=== PATIENT | female | born 1980 | race Caucasian/White ===

== ENCOUNTER 2022-05-09 13:08 | Emergency (ER) | payer MEDICARE, OTHER ==
[~2022-05-09] VITALS: Ht 170 cm; Wt 77.1 kg
[~2022-05-09 13:08] MED LIST: ATEN100T88 PO; CIPR500T78 PO; CLON1TAB36 PO; DICY20TA57 PO; DULO30CA3 PO; HDR2T PO; HYDR1TAB66 PO; HYOS0.1216 PO; METR500T PO; MSL250CCR PO; OMEP20CA6 PO; ONDA-42 SL; ONDA4TAB8 PO; PNT40TEC PO; PRD20T PO; PRD50T PO; PRM25T PO; PROM25SU10 PR; [UNRECOGNIZED DRUG - CODE] PO
[2022-05-09] MEDS ORDERED: NS IV 1000 ML 1,000 ML IV SCH (13:30)
[2022-05-09] MEDS ORDERED: ONDANSETRON 4 MG/2 ML (SDV) Z0FRAN IVP ONE (13:30)
--- NOTE | 2022-05-09 13:37 | ED GI ---
General Chief Complaint: Abdominal/GI Problems Stated Complaint: CROHN'S DISEASE | RECTAL BLEEDING Nursing Triage Note: PT AMB TO RM 7 WITH COMPLAINT OF CROHNS FLARE UP. STATES SHE IS OUT OF HER HUMIRA AND NEEDS TO SEE GASTROENTEROLOGY. History of Present Illness Date Seen by Provider: May 09, 2022 Time Seen by Provider: 13:22 Initial Comments 41-year-old female presents for recurrent diarrhea with brown to dark red blood in the stools at times. She has a history of Crohn's disease and has not been on her Humira for 2 to 3 months due to no follow-up with her bottle inspector in [place]. She is in [place] visiting friends, she otherwise sees Dr. Berry in [place] or [place]. History of partial bowl resection. Timing/Duration: 3-4 Days Severity/Quality: Moderate Location: Generalized Abdomen Radiation: No Radiation Associated Symptoms: No Back Pain, No Chest Pain, No Fever/Chills; Nausea/Vomiting; No Shortness of Air, No Swelling/Mass in Abdomen Allergies and Home Medications Allergies Coded Allergies: meperidine (Verified Allergy, Unknown, 03/26/14) morphine (Verified Allergy, Unknown, 03/26/14) olanzapine (Verified Allergy, Unknown, 03/26/14) prochlorperazine (Verified Allergy, Unknown, 03/26/14) Patient Home Medication List Home Medication List Reviewed: Yes Atenolol (Tenormin 100 Mg) 100 Mg Tablet, 200 MG PO DAILY, (Reported) Entered as Reported by: ONEL HARRIS on 05/27/13 1145 Clonazepam (Klonopin) 1 Mg Tablet, 1 EACH PO BID, (Reported) Entered as Reported by: ONEL HARRIS on 05/27/13 1145 Dicyclomine Hcl (Bentyl) 20 Mg Tablet, 1 EACH PO AC, (Reported) Entered as Reported by: ONEL HARRIS on 05/27/13 1145 Duloxetine Hcl (Cymbalta Capsule) 30 Mg Cap, 90 MG PO DAILY, (Reported) Entered as Reported by: ONEL HARRIS on 05/27/13 1145 Mesalamine (Pentasa) 250 Mg Cap, 1,000 MG PO QID, (Reported) Entered as Reported by: ONEL HARRIS on 05/27/13 1145 Pantoprazole Sodium (Protonix) 40 Mg Tablet., 1 TAB PO DAILY Prescribed by: ANYI WHATLEY on 09/23/13 1349 Promethazine HCl (Promethazine Tablet) 25 Mg Tablet, 25 MG PO Q8H PRN for NAUSEA/VOMITING Prescribed by: JENN ALLISON on 05/09/22 1554 Promethazine Hcl (Phenergan Syrup 30 Ml) 6.25 Mg/5 Ml Syrp, 2 TSP PO Q6H PRN for VOMITING, (Reported) Entered as Reported by: HARDEEP SINCLAIR on 03/25/142158 Review of Systems Review of Systems Constitutional: no symptoms reported, see HPI Gastrointestinal: See HPI, Abdominal Pain; Denies Constipated; Diarrhea, Nausea, Rectal Bleeding All Other Systems Reviewed Negative Unless Noted: Yes Past Odupeys-Zobbmp-Nczuan Hx Patient Social History Tobacco Use?: No Use of E-Cig and/or Vaping dev: No Substance use?: No Alcohol Use?: No Pt feels they are or have been: No Past Medical History Appendectomy, Gallbladder, Tonsillectomy Reproductive Disorders: No Crohns Disease Depression Family Medical History Reviewed Nursing Family Hx No Pertinent Family Hx Physical Exam Vital Signs Vital Signs - First Documented 05/09/22 13:22 Temp 36.8 Pulse 105 Resp 20 B/P (MAP) 126/87 (100) Pulse Ox 97 O2 Delivery Room Air Capillary Refill : Less Than 3 Seconds Height/Weight/BMI Height: 5'7" Weight: 180lbs. oz. 81.602375in; 26.00 BMI Method:Stated General Appearance: WD/WN, no apparent distress Neck: non-tender, full range of motion, supple, normal inspection Respiratory: chest non-tender, lungs clear, normal breath sounds Cardiovascular: normal peripheral pulses, regular rate, rhythm Gastrointestinal: normal bowel sounds, soft, no pulsatile mass; No distended, No rebound; tenderness (generalized) Extremities: normal range of motion, non-tender, normal inspection, no pedal edema, no calf tenderness Neurologic/Psychiatric: no motor/sensory deficits, alert, normal mood/affect, oriented x 3 Skin: normal color, warm/dry Progress/Results/Core Measures Results/Orders Lab Results Laboratory Tests Test 05/09/22 14:00 05/09/22 14:14 Range/Units Urine Color YELLOW Urine Clarity CLEAR Urine pH 5.5 5-9 Urine Specific [place] 1.020 1.016-1.022 Urine Protein NEGATIVE NEGATIVE Urine Glucose (UA) NEGATIVE NEGATIVE Urine Ketones NEGATIVE NEGATIVE Urine Nitrite NEGATIVE NEGATIVE Urine Bilirubin NEGATIVE NEGATIVE Urine Urobilinogen 0.2 < = 1.0 MG/DL Urine Leukocyte Esterase NEGATIVE NEGATIVE Urine RBC (Auto) NEGATIVE NEGATIVE Urine RBC NONE /HPF Urine WBC RARE /HPF Urine Squamous Epithelial Cells 2-5 /HPF Urine Crystals NONE /LPF Urine Bacteria NEGATIVE /HPF Urine Casts NONE /LPF Urine Mucus NEGATIVE /LPF Urine Culture Indicated NO Urine Opiates Screen NEGATIVE NEGATIVE Urine Oxycodone Screen NEGATIVE NEGATIVE Urine Methadone Screen NEGATIVE NEGATIVE Urine Propoxyphene Screen NEGATIVE NEGATIVE Urine Barbiturates Screen NEGATIVE NEGATIVE Ur Tricyclic Antidepressants Screen NEGATIVE NEGATIVE Urine Phencyclidine Screen NEGATIVE NEGATIVE Urine Amphetamines Screen NEGATIVE NEGATIVE Urine Methamphetamines Screen NEGATIVE NEGATIVE Urine Benzodiazepines Screen POSITIVE H NEGATIVE Urine Cocaine Screen NEGATIVE NEGATIVE Urine Cannabinoids Screen NEGATIVE NEGATIVE White Blood Count 8.8 4.3-11.0 10^3/uL Red Blood Count 4.57 3.80-5.11 10^6/uL Hemoglobin 13.6 11.5-16.0 g/dL Hematocrit 40 35-52 % Mean Corpuscular Volume 87 80-99 fL Mean Corpuscular Hemoglobin 30 25-34 pg Mean Corpuscular Hemoglobin Concent 34 32-36 g/dL Red Cell Distribution Width 12.1 10.0-14.5 % Platelet Count 211 130-400 10^3/uL Mean Platelet Volume 9.0 9.0-12.2 fL Immature Granulocyte % (Auto) 1 % Neutrophils (%) (Auto) 78 H 42-75 % Lymphocytes (%) (Auto) 8 L 12-44 % Monocytes (%) (Auto) 11 0-12 % Eosinophils (%) (Auto) 2 0-10 % Basophils (%) (Auto) 1 0-10 % Neutrophils # (Auto) 6.8 1.8-7.8 10^3/uL Lymphocytes # (Auto) 0.7 L 1.0-4.0 10^3/uL Monocytes # (Auto) 1.0 0.0-1.0 10^3/uL Eosinophils # (Auto) 0.2 0.0-0.3 10^3/uL Basophils # (Auto) 0.1 0.0-0.1 10^3/uL Immature Granulocyte # (Auto) 0.0 0.0-0.1 10^3/uL Prothrombin Time 12.7 12.2-14.7 SEC INR Comment 0.9 0.8-1.4 Activated Partial Thromboplast Time 31 24-35 SEC Sodium Level 139 135-145 MMOL/L Potassium Level 3.8 3.6-5.0 MMOL/L Chloride Level 102 98-107 MMOL/L Carbon Dioxide Level 27 21-32 MMOL/L Anion Gap 10 5-14 MMOL/L Blood Urea Nitrogen 15 7-18 MG/DL Creatinine 0.81 0.60-1.30 MG/DL Estimat Glomerular Filtration Rate 93 BUN/Creatinine Ratio 19 Glucose Level 61 L 70-105 MG/DL Calcium Level 9.4 8.5-10.1 MG/DL Corrected Calcium 9.4 8.5-10.1 MG/DL Total Bilirubin 0.2 0.1-1.0 MG/DL Aspartate Amino Transf (AST/SGOT) 22 5-34 U/L Alanine Aminotransferase (ALT/SGPT) 38 0-55 U/L Alkaline Phosphatase 83 40-136 U/L C-Reactive Protein High Sensitivity 0.76 H 0.00-0.50 MG/DL Total Protein 7.1 6.4-8.2 GM/DL Albumin 4.0 3.2-4.5 GM/DL Amylase Level 70 25-125 U/L Lipase 67 8-78 U/L My Orders Orders - JENN ALLISON Amylase (05/09/22 13:30) Cbc With Automated Diff (05/09/22 13:30) Comprehensive Metabolic Panel (05/09/22 13:30) Hs C Reactive Protein (05/09/22 13:30) Drug Screen Stat (Urine) (05/09/22 13:30) Lipase (05/09/22 13:30) Protime With Inr (05/09/22 13:30) Partial Thromboplastin Time (05/09/22 13:30) Ua Culture If Indicated (05/09/22 13:30) Ondansetron Injection (Zofran Injectio (05/09/22 13:30) Ed Iv/Invasive Line Start (05/09/22 13:30) Ns Iv 1000 Ml (Sodium Chloride 0.9%) (05/09/22 13:30) Promethazine Injection (Phenergan Injec (12/29/22 14:40) Tramadol Tablet (Ultram Tablet) (05/09/22 15:23) Ketorolac Injection (Toradol Injection) (05/09/22 15:34) Medications Given in ED Current Medications Medications Dose Ordered Sig/Kenna Route Start Time Stop Time Status Last Admin Dose Admin Ondansetron HCl 4 mg ONCE ONCE IVP 05/09/22 13:30 05/09/22 13:32 DC 05/09/22 14:21 4 MG Vital Signs/I&O 05/09/22 13:22 Temp 36.8 Pulse 105 Resp 20 B/P (MAP) 126/87 (100) Pulse Ox 97 O2 Delivery Room Air Blood Pressure Mean: 100 Progress Progress Note : Time: : Progress Note patient assessed, will check labs, IV NS 1 L, Zofran 4 mg IV for nausea. 1400 unable to get IV access. 1430 24 G IV to wrist, will give fluids and medications now. 1450 patient reports no improvement and in nausea and more pain. Will give Phenergan 25 mg IV. 1500 patient continues to push call light every 5 min and demand pain medication, explained that the best and most appropriate treatment is to schedule follow up with her GI doctor in [place] for her Humira injection. 1515 will give Tramadol 50 mg orally for pain. Patient had no episodes of diarrhea, vomiting or rectal bleeding since presenting. 1525 patient refused Tramadol, reports nausea too bad to take anything orally. Will try Toradol 60 mg IM. Patient continues to be demanding, explained labs and VS are stable. This is a chronic problem, we are trying to treat her acute symptoms but getting her monthly injections is the best treatment for her. 1600 patient reports improvement in pain and nausea, discharge instructions and return precautions reviewed. Departure Impression Primary Impression: Crohn's disease Qualified Codes: K50.919 - Crohn's disease, unspecified, with unspecified complications Disposition: HOME, SELF-CARE Condition: Stable Departure-Patient Inst. Decision time for Depature: 15:00 Referrals: [facility],LOCAL PHYSICIAN (PCP) Primary Care Physician Patient Instructions: Crohn's Disease (DC) Add. Discharge Instructions: Clear liquid diet for the next 4 to 6 hours then bland diet as tolerated. Contact your bottle inspector in [place] to set up appointment for your Humira injection. Follow-up with your primary care provider for medication refills. Use the Phenergan as directed for nausea and vomiting. Return to the emergency department for new, urgent healthcare needs. All discharge instructions reviewed with patient and/or family. Voiced understanding. Scripts Promethazine HCl (Promethazine Tablet) 25 Mg Tablet 25 MG PO Q8H PRN for NAUSEA/VOMITING, #10 TAB 0 Refills Prov: JENN ALLISON 05/09/22 JENN ALLISON May 09, 2022 13:37
[2022-05-09 14:03] LABS: BILIRUBIN,URINE NEGATIVE (NEGATIVE); CLARITY,URINE CLEAR; COLOR,URINE YELLOW; GLUCOSE, URINE (UA) NEGATIVE (NEGATIVE); KETONES,URINE NEGATIVE (NEGATIVE); LEUKOCYTE ESTERASE ,URINE NEGATIVE (NEGATIVE); NITRITE,URINE NEGATIVE (NEGATIVE); PH,URINE 5.5 (5-9); PROTEIN,URINE NEGATIVE (NEGATIVE)
[2022-05-09 14:14] LABS: AMPHETAMINE SCREEN, URINE NEGATIVE (NEGATIVE); BACTERIA,URINE NEGATIVE /HPF; BARBITURATE SCREEN URINE NEGATIVE (NEGATIVE); BENZODIAZEPINES SCREEN URINE POSITIVE (NEGATIVE); CANNABINOID SCREEN, URINE NEGATIVE (NEGATIVE); COCAINE SCREEN URINE NEGATIVE (NEGATIVE); METHADONE STAT NEGATIVE (NEGATIVE); OPIATE SCREEN URINE NEGATIVE (NEGATIVE); OXYCODONE STAT NEGATIVE (NEGATIVE); PROPOXYPHENE STAT NEGATIVE (NEGATIVE); TRICYCLIC ANTIDEPRESSANTS SCRE NEGATIVE (NEGATIVE); WBC,URINE RARE /HPF
[2022-05-09 14:28] LABS: BASOPHILS # (AUTO) 0.1 10^3/uL (0.0-0.1); BASOPHILS % (AUTO) 1 % (0-10); EOSINOPHILS # (AUTO) 0.2 10^3/uL (0.0-0.3); EOSINOPHILS % (AUTO) 2 % (0-10); HEMATOCRIT 40 % (35-52); HEMOGLOBIN 13.6 g/dL (11.5-16.0); LYMPHOCYTES # (AUTO) 0.7 10^3/uL (1.0-4.0); LYMPHOCYTES % (AUTO) 8 % (12-44); MEAN CORPUSCULAR HEMOGLOBIN 30 pg (25-34); MEAN CORPUSCULAR HGB CONC 34 g/dL (32-36); MEAN CORPUSCULAR VOLUME 87 fL (80-99); MONOCYTES % (AUTO) 11 % (0-12); NEUTROPHILS # (AUTO) 6.8 10^3/uL (1.8-7.8); NEUTROPHILS % (AUTO) 78 % (42-75); PLATELET COUNT 211 10^3/uL (130-400); WHITE BLOOD COUNT 8.8 10^3/uL (4.3-11.0)
[2022-05-09 14:37] LABS: BILIRUBIN,TOTAL 0.2 MG/DL (0.1-1.0); CALCIUM 9.4 MG/DL (8.5-10.1); CREATININE SERUM 0.81 MG/DL (0.60-1.30); POTASSIUM 3.8 MMOL/L (3.6-5.0); TOTAL PROTEIN 7.1 GM/DL (6.4-8.2)
[2022-05-09 14:38] LABS: INR 0.9 (0.8-1.4); PROTHROMBIN TIME PATIENT 12.7 SEC (12.2-14.7)
[2022-05-09] MEDS ORDERED: PROMETHAZINE INJ 25 MG/ML (PHENERGAN) AMP IVP STA (14:40)
[2022-05-09] MEDS ORDERED: KETOROLAC 60 MG/2 ML VIAL IM STA (15:34)
[2022-05-09] MEDS ORDERED: PROM25TA14 PO ×2 (15:54→16:11)
[2022-05-09 16:15] VITALS: BP 100/62
[2022-05-10] MEDS ORDERED: CHLO1TAB94 PO (00:01)
[2022-05-10] MEDS ORDERED: MESA500C PO (00:01)
== END 2022-05-09 16:30 | disposition home or self-care (01) ==
LOC: EDUNIT# 13:08 → ER 13:11
DX: K50.90 Crohn's disease, unspecified, without complications (principal)
CPT/HCPCS: 36415; 80053; 80306; 81000; 82150; 83690; 85025; 85610; 85730; 86141; 99284

== ENCOUNTER 2022-05-09 20:18 | Emergency (ER) | payer MEDICARE ==
[~2022-05-09] VITALS: Ht 170.2 cm; Wt 77.1 kg
[~2022-05-09 20:18] MED LIST changes: +PROM25TA14 PO
--- NOTE | 2022-05-09 22:55 | ED Abdominal Pain ---
General Chief Complaint: Abdominal/GI Problems Stated Complaint: FEVER,ABD PAIN,CHILLS,SHAKES Nursing Triage Note: PT AMB TO TRIAGE W REPORTS CROHNS/RA FLARE UP AND FEVER D.T BEING OUT OF MEDS. PT C/O ABD PAIN, BONE PAIN, RECTAL BLEEDING, AND NAUSEA. PT A&OX4. Source of Information: Patient, Other (care worker) Exam Limitations: No Limitations History of Present Illness Date Seen by Provider: May 09, 2022 Time Seen by Provider: 22:45 Initial Comments Patient is a 41-year-old female who presents to the emergency room with her care worker chief complaint abdominal pain, fever. She was seen earlier in the day with extensive work-up, reassuring labs and exam. States that she is having blood in her stool, nausea. She is quite agitated, tearful and crying. States she has been out of her Humira for 2 or 3 months. She lives in a [facility] for drug dependence. Decreased appetite today. No diarrhea. States that she is not on mesalamine. Does not have a GI doctor currently. Used to follow with 1 in [place]. Normal urination. No chest pain, shortness of breath. Shortly after her dismissal and arriving back at the [facility]cc earlier today staff noted that she had a fever. She tells me she also has a history of rheumatoid arthritis. No specific joint pain, swelling or redness to any of her joints they just "hurt". She defers some of her history to the care worker who is with her. Timing/Duration: 24 Hours Severity/Quality: Severe ("11") Location: Generalized Abdomen Radiation: No Radiation Activities at Onset: None Associated Symptoms: Nausea/Vomiting, Other (bloody stools) Allergies and Home Medications Allergies Coded Allergies: meperidine (Verified Allergy, Unknown, 03/26/14) Patient Home Medication List Home Medication List Reviewed: Yes Atenolol (Tenormin 100 Mg) 100 Mg Tablet, 200 MG PO DAILY, (Reported) Entered as Reported by: ONEL HARRIS on 05/27/13 1145 Chlorpheniramine/Phenylephrine (Eql Sinus-Allergy PE Tablet) 4 Mg-10 Mg Tablet, 1 EACH PO Q6H PRN for congestion Prescribed by: JONATHAN POWER on 05/10/22 0001 Clonazepam (Klonopin) 1 Mg Tablet, 1 EACH PO BID, (Reported) Entered as Reported by: ONEL HARRIS on 05/27/13 1145 Dicyclomine Hcl (Bentyl) 20 Mg Tablet, 1 EACH PO AC, (Reported) Entered as Reported by: ONEL HARRIS on 05/27/13 1145 Duloxetine Hcl (Cymbalta Capsule) 30 Mg Cap, 90 MG PO DAILY, (Reported) Entered as Reported by: ONEL HARRIS on 05/27/13 1145 Mesalamine (Pentasa) 250 Mg Cap, 1,000 MG PO QID, (Reported) Entered as Reported by: ONEL HARRIS on 05/27/13 1145 Mesalamine (Pentasa) 500 Mg Capsule.er, 1,000 MG PO Q6H Prescribed by: JONATHAN POWER on 05/10/22 0001 Pantoprazole Sodium (Protonix) 40 Mg Tablet.dr, 1 TAB PO DAILY Prescribed by: ANYI WHATLEY on 09/23/13 1349 Promethazine HCl (Promethazine Tablet) 25 Mg Tablet, 25 MG PO Q8H PRN for NAUSEA/VOMITING Prescribed by: JENN ALLISON on 05/09/22 1611 Promethazine Hcl (Phenergan Syrup 30 Ml) 6.25 Mg/5 Ml Syrp, 2 TSP PO Q6H PRN for VOMITING, (Reported) Entered as Reported by: HARDEEP SINCLAIR on 03/25/14 2159 Discontinued Medications Promethazine HCl (Promethazine Tablet) 25 Mg Tablet, 25 MG PO Q8H PRN for NAUSEA/VOMITING Prescribed by: JENN ALLISON on 05/09/22 1554 Review of Systems Review of Systems Constitutional: see HPI EENTM: No Symptoms Reported Respiratory: Cough Cardiovascular: No Symptoms Reported Gastrointestinal: Abdominal Pain, Blood Streaked Stools, Nausea, Poor Appetite Genitourinary: No Symptoms Reported Musculoskeletal: no symptoms reported Skin: no symptoms reported Psychiatric/Neurological: Anxiety, Depressed, Emotional Problems All Other Systems Reviewed Negative Unless Noted: Yes Past Zkpgtge-Pyqlyg-Komlfb Hx Patient Social History Tobacco Use?: No Use of E-Cig and/or Vaping dev: Yes E-Cig or Vaping type used: Nicotine Use of E-Cig and/or Vaping Wm: Current Everyday User Substance use?: No Alcohol Use?: No Immunizations Up To Date Influenza Vaccine Up-to-Date: No; Not Current First/Initial COVID19 Vaccinat: NONE Second COVID19 Vaccination Hung: NONE Third COVID19 Vaccination Date: NONE COVID19 Vaccine Paperboard Boxes Estimator: NONE Past Medical History Appendectomy, Gallbladder, Tonsillectomy Reproductive Disorders: No Crohns Disease Depression Family Medical History No Pertinent Family Hx Physical Exam Vital Signs Vital Signs - First Documented 05/09/22 20:25 Temp 38.7 Pulse 121 Resp 20 B/P (MAP) 118/82 (94) Pulse Ox 96 O2 Delivery Room Air Capillary Refill : Less Than 3 Seconds Height/Weight/BMI Height: 5'7" Weight: 180lbs. oz. 81.005467uv; 26.00 BMI Method:Stated General Appearance: WD/WN, moderate distress (tearful crying) HEENT: other (conjunctival injection and puffy eyelids - consistent with crying) Neck: full range of motion, normal inspection Respiratory: lungs clear, normal breath sounds, no respiratory distress, no accessory muscle use Cardiovascular: regular rate, rhythm Gastrointestinal: normal bowel sounds, soft, tenderness (diffuse tenderness to light palpation; normal BS; no involuntary guarding or distension) Extremities: normal range of motion, non-tender, normal inspection, no pedal edema, no calf tenderness Neurologic/Psychiatric: alert, oriented x 3, depressed affect (tearful and upset) Skin: normal color, warm/dry Progress/Results/Core Measures Results/Orders Lab Results Laboratory Tests Test 05/09/22 23:04 05/09/22 23:20 Range/Units Influenza Type A (RT-PCR) Not Detected Not Detecte Influenza Type B (RT-PCR) Not Detected Not Detecte SARS-CoV-2 RNA (RT-PCR) Detected H Not Detecte White Blood Count 7.8 4.3-11.0 10^3/uL Red Blood Count 4.90 3.80-5.11 10^6/uL Hemoglobin 14.4 11.5-16.0 g/dL Hematocrit 43 35-52 % Mean Corpuscular Volume 88 80-99 fL Mean Corpuscular Hemoglobin 29 25-34 pg Mean Corpuscular Hemoglobin Concent 34 32-36 g/dL Red Cell Distribution Width 12.3 10.0-14.5 % Platelet Count 210 130-400 10^3/uL Mean Platelet Volume 8.9 L 9.0-12.2 fL Immature Granulocyte % (Auto) 1 % Neutrophils (%) (Auto) 79 H 42-75 % Lymphocytes (%) (Auto) 9 L 12-44 % Monocytes (%) (Auto) 9 0-12 % Eosinophils (%) (Auto) 1 0-10 % Basophils (%) (Auto) 1 0-10 % Neutrophils # (Auto) 6.2 1.8-7.8 10^3/uL Lymphocytes # (Auto) 0.7 L 1.0-4.0 10^3/uL Monocytes # (Auto) 0.7 0.0-1.0 10^3/uL Eosinophils # (Auto) 0.1 0.0-0.3 10^3/uL Basophils # (Auto) 0.1 0.0-0.1 10^3/uL Immature Granulocyte # (Auto) 0.1 0.0-0.1 10^3/uL Erythrocyte Sedimentation Rate 10 0-20 MM/HR Sodium Level 138 135-145 MMOL/L Potassium Level 4.3 3.6-5.0 MMOL/L Chloride Level 104 98-107 MMOL/L Carbon Dioxide Level 23 21-32 MMOL/L Anion Gap 11 5-14 MMOL/L Blood Urea Nitrogen 13 7-18 MG/DL Creatinine 0.92 0.60-1.30 MG/DL Estimat Glomerular Filtration Rate 80 BUN/Creatinine Ratio 14 Glucose Level 66 L 70-105 MG/DL Calcium Level 9.9 8.5-10.1 MG/DL Corrected Calcium 8.5-10.1 MG/DL Total Bilirubin 0.2 0.1-1.0 MG/DL Aspartate Amino Transf (AST/SGOT) 27 5-34 U/L Alanine Aminotransferase (ALT/SGPT) 43 0-55 U/L Alkaline Phosphatase 95 40-136 U/L C-Reactive Protein High Sensitivity 2.39 H 0.00-0.50 MG/DL Total Protein 8.4 H 6.4-8.2 GM/DL Albumin 4.7 H 3.2-4.5 GM/DL My Orders Orders - JONATHAN POWER MD Ed Iv/Invasive Line Start (05/09/22 22:55) Cbc With Automated Diff (05/09/22 22:55) Comprehensive Metabolic Panel (05/09/22 22:55) Erythrocyte Sedimentation Rate (05/09/22 22:55) Hs C Reactive Protein (05/09/22 22:55) Covid 19 Inhouse Test (05/09/22 22:55) Influenza A And B By Pcr (05/09/22 22:55) Isolation Central Supply Req (05/09/22 22:55) Ns Iv 1000 Ml (Sodium Chloride 0.9%) (05/09/22 23:00) Fentanyl Inj (Sublimaze Injection) (05/09/22 23:00) Ondansetron Injection (Zofran Injectio (05/09/22 23:00) Acetaminophen Tablet (Tylenol Tablet) (05/09/22 23:45) Medications Given in ED Vital Signs/I&O 05/09/22 05/09/22 05/10/22 20:25 23:41 00:06 Temp 38.7 38.7 38.0 Pulse 121 98 Resp 20 20 B/P (MAP) 118/82 (94) 117/76 Pulse Ox 96 96 O2 Delivery Room Air Room Air Blood Pressure Mean: 94 Progress Progress Note : Time: 23:54 Progress Note Notified by nursing staff that the patient's IV went bad. She was going to start some IV fluids. The patient declined another IV stick but was asking for more IV pain medication. She stated if she had to be restock she just wanted to go home. She is feeling better. Suspect in review of the patient's medical record, that there is a certain element for some narcotic seeking. She tells a different story with her leather case finisher in the room this evening and she did to the nurse practitioner earlier today. The patient has been in a mcc setting since 25 April for "depression". She is found to be COVID-positive this evening, this explains her fever this evening. Her abdominal exam was benign. Repeated labs from this afternoon remain normal with a slightly higher CRP. But her hemoglobin is stable. She will be given a prescription for congestion for the COVID symptoms as well as a prescription for mesalamine. I strongly recommended that the patient follow-up with her GI doctor. Her vital signs are stable, she is not hypoxic. She would be "outside the window" for any medications to treat the COVID. She is exhibiting no signs of respiratory distress. Chest x-ray considered however history and physical exam do not supp ort the need. All of the findings have been communicated to the patient. She is comfortable with the plan of care. All questions are sought and answered. Departure Impression Primary Impression: Abdominal pain Additional Impressions: COVID-19 History of Crohn's disease Disposition: HOME, SELF-CARE Condition: Improved Departure-Patient Inst. Decision time for Depature: 23:57 Referrals: [facility],LOCAL PHYSICIAN (PCP) Primary Care Physician Patient Instructions: COVID-19 ED Add. Discharge Instructions: Drink plenty of fluids to stay well-hydrated. Take 2 extra strength Tylenol every 6 hours as needed for pain and fever over 100.4. 3 [id number] ibuprofen which is 600 mg, with food every 6 hours as needed for pain and fever over 100.4. Chlopherniramine/phenylephrine tablets for congestion/cold symptoms. 1 tablet every 6 hours as needed. Mesalamine 1000mg every 6 hours. Enough medications given for 1 week until you follow up with a primary care doctor. Return to the emergency department for any new, concerning or emergent complaints. Scripts Mesalamine (Pentasa) 500 Mg Capsule.er 1000 MG PO Q6H, #56 CAP Prov: JONATHAN POWER MD 05/10/22 Chlorpheniramine/Phenylephrine (Eql Sinus-Allergy PE Tablet) 4 Mg-10 Mg Tablet 1 EACH PO Q6H PRN for congestion, #30 TAB Prov: JONATHAN POWER MD 05/10/22 JONATHAN POWER MD May 09, 2022 22:55
[2022-05-09] MEDS ORDERED: fentaNYL INJ 100 MCG/2 ML AMP IVP ONE (23:00)
[2022-05-09] MEDS ORDERED: NS IV 1000 ML 1,000 ML IV SCH (23:00)
[2022-05-09] MEDS ORDERED: ONDANSETRON 4 MG/2 ML (SDV) Z0FRAN IVP ONE (23:00)
[2022-05-09 23:28] LABS: BASOPHILS # (AUTO) 0.1 10^3/uL (0.0-0.1); BASOPHILS % (AUTO) 1 % (0-10); EOSINOPHILS # (AUTO) 0.1 10^3/uL (0.0-0.3); EOSINOPHILS % (AUTO) 1 % (0-10); HEMATOCRIT 43 % (35-52); HEMOGLOBIN 14.4 g/dL (11.5-16.0); LYMPHOCYTES # (AUTO) 0.7 10^3/uL (1.0-4.0); LYMPHOCYTES % (AUTO) 9 % (12-44); MEAN CORPUSCULAR HEMOGLOBIN 29 pg (25-34); MEAN CORPUSCULAR HGB CONC 34 g/dL (32-36); MEAN CORPUSCULAR VOLUME 88 fL (80-99); MEAN PLATELET VOLUME 8.9 fL (9.0-12.2); MONOCYTES # (AUTO) 0.7 10^3/uL (0.0-1.0); MONOCYTES % (AUTO) 9 % (0-12); NEUTROPHILS # (AUTO) 6.2 10^3/uL (1.8-7.8); NEUTROPHILS % (AUTO) 79 % (42-75); PLATELET COUNT 210 10^3/uL (130-400); WHITE BLOOD COUNT 7.8 10^3/uL (4.3-11.0)
[2022-05-09 23:39] LABS: ALBUMIN 4.7 GM/DL (3.2-4.5); CHLORIDE 104 MMOL/L (98-107); POTASSIUM 4.3 MMOL/L (3.6-5.0); SODIUM 138 MMOL/L (135-145)
[2022-05-09 23:40] LABS: CALCIUM 9.9 MG/DL (8.5-10.1)
[2022-05-09 23:41] LABS: GLUCOSE 66 MG/DL (70-105); TOTAL PROTEIN 8.4 GM/DL (6.4-8.2)
[2022-05-09 23:42] LABS: CARBON DIOXIDE 23 MMOL/L (21-32)
[2022-05-09 23:43] LABS: BILIRUBIN,TOTAL 0.2 MG/DL (0.1-1.0)
[2022-05-09 23:45] LABS: ALKALINE PHOSPHATASE 95 U/L (40-136); CREATININE SERUM 0.92 MG/DL (0.60-1.30); GFR ESTIMATED 80
[2022-05-09] MEDS ORDERED: ACETAMINOPHEN 500 MG TAB (TYLENOL) PO ONE (23:45)
[2022-05-09 23:46] LABS: BUN/CREATININE RATIO 14
[2022-05-09 23:48] LABS: ALANINE AMINOTRANSFERASE 43 U/L (0-55); ERYTHROCYTE SEDIMENTATION RATE 10 MM/HR (0-20)
[2022-05-10] MEDS ORDERED: MESA500C PO (00:01)
[2022-05-10] MEDS ORDERED: CHLO1TAB94 PO (00:01)
[2022-05-10 00:06] VITALS: BP 117/76
== END 2022-05-10 00:06 | disposition home or self-care (01) ==
LOC: EDUNIT# 20:18 → ER 20:20
DX: U07.1 COVID-19 (principal); R10.84 Generalized abdominal pain; R50.9 Fever, unspecified; F17.290 Nicotine dependence, other tobacco product, uncomplicated; Z87.19 Personal history of other diseases of the digestive system; Z28.310 Unvaccinated for COVID-19
CPT/HCPCS: 36415; 80053; 85025; 85652; 86141; 87636; 99283

== ENCOUNTER 2022-06-21 13:39 | Emergency (ER) | payer MEDICARE, MEDICAID ==
[~2022-06-21] VITALS: Ht 170.2 cm; Wt 77.1 kg
[~2022-06-21 13:39] MED LIST changes: +CHLO1TAB94 PO; +MESA500C PO
[2022-06-21 14:00] LABS: BASOPHILS # (AUTO) 0.1 10^3/uL (0.0-0.1); BASOPHILS % (AUTO) 1 % (0-10); EOSINOPHILS # (AUTO) 0.2 10^3/uL (0.0-0.3); EOSINOPHILS % (AUTO) 2 % (0-10); HEMATOCRIT 40 % (35-52); HEMOGLOBIN 13.5 g/dL (11.5-16.0); LYMPHOCYTES # (AUTO) 3.2 10^3/uL (1.0-4.0); LYMPHOCYTES % (AUTO) 32 % (12-44); MEAN CORPUSCULAR HEMOGLOBIN 29 pg (25-34); MEAN CORPUSCULAR HGB CONC 34 g/dL (32-36); MEAN CORPUSCULAR VOLUME 85 fL (80-99); MEAN PLATELET VOLUME 8.6 fL (9.0-12.2); MONOCYTES # (AUTO) 0.9 10^3/uL (0.0-1.0); MONOCYTES % (AUTO) 9 % (0-12); NEUTROPHILS # (AUTO) 5.5 10^3/uL (1.8-7.8); NEUTROPHILS % (AUTO) 55 % (42-75); PLATELET COUNT 303 10^3/uL (130-400); WHITE BLOOD COUNT 9.9 10^3/uL (4.3-11.0)
[2022-06-21 14:11] LABS: ALBUMIN 4.1 GM/DL (3.2-4.5)
[2022-06-21 14:12] LABS: POTASSIUM 3.8 MMOL/L (3.6-5.0)
[2022-06-21 14:14] LABS: TOTAL PROTEIN 7.2 GM/DL (6.4-8.2)
[2022-06-21 14:16] LABS: BILIRUBIN,TOTAL 0.2 MG/DL (0.1-1.0)
[2022-06-21 14:18] LABS: CREATININE SERUM 0.73 MG/DL (0.60-1.30)
[2022-06-21 14:48] LABS: BILIRUBIN,URINE NEGATIVE (NEGATIVE); CLARITY,URINE CLEAR; COLOR,URINE YELLOW; GLUCOSE, URINE (UA) NEGATIVE (NEGATIVE); KETONES,URINE NEGATIVE (NEGATIVE); LEUKOCYTE ESTERASE ,URINE TRACE (NEGATIVE); NITRITE,URINE NEGATIVE (NEGATIVE); PROTEIN,URINE NEGATIVE (NEGATIVE)
[2022-06-21 14:58] LABS: BACTERIA,URINE TRACE /HPF; SQUAMOUS EPITHELIAL CELL,UR 0-2 /HPF; WBC,URINE 0-2 /HPF
[2022-06-21] MEDS ORDERED: morphine INJ 10 MG/ML 1ML (SYR OR VIAL) IVP STA ×2 (15:20→17:00)
[2022-06-21] MEDS ORDERED: IOHEXOL 350 MG/ML 100 ML (OMNIPAQUE 350) VIAL IV ONE (15:30)
[2022-06-21] MEDS ORDERED: LACTATED RINGERS 1,000 ML IV ONE (15:30)
[2022-06-21] MEDS ORDERED: ONDANSETRON 4 MG/2 ML (SDV) Z0FRAN IVP ONE (15:30)
[2022-06-21] MEDS ORDERED: HOLD METFORMIN - RECEIVED CONTRAST 20 ML VIAL IV SCH (15:30)
[2022-06-21] MEDS ORDERED: NS 100 ML (IVPB) BAG IV ONE (15:30)
--- NOTE | 2022-06-21 15:44 | ED Abdominal Pain ---
General Chief Complaint: Abdominal/GI Problems Stated Complaint: ABD PAIN Nursing Triage Note: PT TO ROOM 04 VIA [facility] WITH C/O ABD PAIN, N/V X2 DAYS. PT REPORTS HX OF CROHN'S. PT STATES HER ENTIRE LARGE BOWEL HAS BEEN REMOVED. Source of Information: Patient Exam Limitations: No Limitations History of Present Illness Date Seen by Provider: Jun 21, 2022 Time Seen by Provider: 13:41 Initial Comments This 41-year-old woman presents to the emergency room with complaints of generalized abdominal pain and distention with associated nausea. She denies vomiting or diarrhea. She has had no fever. Her last bowel movement was yesterday. She has history of colon resection secondary to toxic megacolon and Crohn's disease in 2007. She has subsequently experienced small bowel obstructions. After colectomy she had ileostomy and reversal. Symptoms have progressively worsened over the past couple of days. She arrives via EMS. Her primary care provider is Dr. Geovany Berry in [place] and her vamp liner is Dr. Mccoy at [facility]. She also has rheumatoid arthritis and is on Humira. Allergies and Home Medications Allergies Coded Allergies: meperidine (Verified Allergy, Unknown, 03/26/14) Patient Home Medication List Home Medication List Reviewed: Yes Atenolol (Tenormin 100 Mg) 100 Mg Tablet, 200 MG PO DAILY, (Reported) Entered as Reported by: ONEL HARRIS on 05/27/13 1145 Chlorpheniramine/Phenylephrine (Eql Sinus-Allergy PE Tablet) 4 Mg-10 Mg Tablet, 1 EACH PO Q6H PRN for congestion Prescribed by: JONATHAN POWER on 05/10/22 0001 Clonazepam (Klonopin) 1 Mg Tablet, 1 EACH PO BID, (Reported) Entered as Reported by: ONEL HARRIS on 05/27/13 1145 Dicyclomine Hcl (Bentyl) 20 Mg Tablet, 1 EACH PO AC, (Reported) Entered as Reported by: ONEL HARRIS on 05/27/13 1145 Duloxetine Hcl (Cymbalta Capsule) 30 Mg Cap, 90 MG PO DAILY, (Reported) Entered as Reported by: ONEL HARRIS on 05/27/13 1145 Hydrocodone/Acetaminophen (Hydrocodone-Acetamin 5-325 mg) 5 Mg-325 Mg Tablet, 1 TAB PO Q4H PRN for PAIN-MODERATE (5-7) Prescribed by: DIEGO BERGMAN on 06/21/22 181 Mesalamine (Pentasa) 250 Mg Cap, 1,000 MG PO QID, (Reported) Entered as Reported by: ONEL HARRIS on 05/27/13 1145 Mesalamine (Pentasa) 500 Mg Capsule.er, 1,000 MG PO Q6H Prescribed by: JONATHAN POWER on 05/10/22 0001 Na Phos,M-B/Na Phos,Di-Ba (Fleet Enema) 19 Gram-7 Gram/118 Ml Enema, 133 ML RC BID PRN for CONSTIPATION Prescribed by: DIEGO BERGMAN on 06/21/22 181 Pantoprazole Sodium (Protonix) 40 Mg Tablet.dr, 1 TAB PO DAILY Prescribed by: ANYI WHATLEY on 09/23/13 1349 Polyethylene Glycol 3350 (Miralax) 17 Gram/Dose Powder, 17 GM PO Q4H PRN for CONSTIPATION Prescribed by: DIEGO BERGMAN on 06/21/22 181 Promethazine HCl (Promethazine Tablet) 25 Mg Tablet, 25 MG PO Q8H PRN for NAUSEA/VOMITING Prescribed by: JENN ALLISON on 05/09/22 1611 Promethazine HCl (Promethazine Tablet) 25 Mg Tablet, 25 MG PO Q6H PRN for NAUSEA/VOMITING Prescribed by: DIEGO BERGMAN on 06/21/221815 Promethazine Hcl (Phenergan Syrup 30 Ml) 6.25 Mg/5 Ml Syrp, 2 TSP PO Q6H PRN for VOMITING, (Reported) Entered as Reported by: HARDEEP SINCLAIR on 03/25/142158 Review of Systems Review of Systems Constitutional: no symptoms reported EENTM: No Symptoms Reported Respiratory: No Symptoms Reported Cardiovascular: No Symptoms Reported Gastrointestinal: See HPI Genitourinary: No Symptoms Reported Musculoskeletal: no symptoms reported Skin: no symptoms reported Psychiatric/Neurological: No Symptoms Reported Endocrine: No Symptoms Reported Hematologic/Lymphatic: No Symptoms Reported Past Lcpsviz-Meyhcu-Imucti Hx Patient Social History Tobacco Use?: Yes Tobacco type used: Cigarettes Smoking Status: Heavy Tobacco Smoker Smokeless Tobacco Frequency: Never a User Use of E-Cig and/or Vaping dev: No Use of E-Cig and/or Vaping Wm: Never a User Substance use?: No Alcohol Use?: No Pt feels they are or have been: No Immunizations Up To Date First/Initial COVID19 Vaccinat: NONE Second COVID19 Vaccination Hung: NONE Third COVID19 Vaccination Date: NONE Past Medical History Surgeries: Yes (Port insertion and removeal) Abdominal (Ileostomy and reversal, bowel resection), Appendectomy, Gallbladder, Tonsillectomy Respiratory: No Cardiac: No Neurological: No Reproductive Disorders: No Genitourinary: No Gastrointestinal: Yes Crohns Disease, Obstructive Bowel Musculoskeletal: Yes Rheumatoid Arthritis Endocrine: No HEENT: No Cancer: No Psychosocial: No Depression Integumentary: No Family Medical History No Pertinent Family Hx Physical Exam Vital Signs Vital Signs - First Documented 06/21/22 13:40 Temp 36.8 Pulse 99 Resp 17 B/P (MAP) 142/93 (109) O2 Delivery Room Air Capillary Refill : Less Than 3 Seconds Height/Weight/BMI Height: 5'7" Weight: 180lbs. oz. 81.687651er; 26.00 BMI Method:Stated General Appearance: WD/WN, mild distress HEENT: normal ENT inspection Neck: normal inspection Respiratory: lungs clear, normal breath sounds, no respiratory distress Cardiovascular: regular rate, rhythm, no edema, no murmur Gastrointestinal: normal bowel sounds, soft, distended, tenderness (Generalized) Extremities: non-tender, normal inspection, no pedal edema Neurologic/Psychiatric: no motor/sensory deficits, alert, normal mood/affect, oriented x 3 Skin: normal color, warm/dry Progress/Results/Core Measures Results/Orders Lab Results Laboratory Tests Test 06/21/22 13:53 06/21/22 14:41 Range/Units White Blood Count 9.9 4.3-11.0 10^3/uL Red Blood Count 4.68 3.80-5.11 10^6/uL Hemoglobin 13.5 11.5-16.0 g/dL Hematocrit 40 35-52 % Mean Corpuscular Volume 85 80-99 fL Mean Corpuscular Hemoglobin 29 25-34 pg Mean Corpuscular Hemoglobin Concent 34 32-36 g/dL Red Cell Distribution Width 12.8 10.0-14.5 % Platelet Count 303 130-400 10^3/uL Mean Platelet Volume 8.6 L 9.0-12.2 fL Immature Granulocyte % (Auto) 0 % Neutrophils (%) (Auto) 55 42-75 % Lymphocytes (%) (Auto) 32 12-44 % Monocytes (%) (Auto) 9 0-12 % Eosinophils (%) (Auto) 2 0-10 % Basophils (%) (Auto) 1 0-10 % Neutrophils # (Auto) 5.5 1.8-7.8 10^3/uL Lymphocytes # (Auto) 3.2 1.0-4.0 10^3/uL Monocytes # (Auto) 0.9 0.0-1.0 10^3/uL Eosinophils # (Auto) 0.2 0.0-0.3 10^3/uL Basophils # (Auto) 0.1 0.0-0.1 10^3/uL Immature Granulocyte # (Auto) 0.0 0.0-0.1 10^3/uL Sodium Level 138 135-145 MMOL/L Potassium Level 3.8 3.6-5.0 MMOL/L Chloride Level 105 98-107 MMOL/L Carbon Dioxide Level 22 21-32 MMOL/L Anion Gap 11 5-14 MMOL/L Blood Urea Nitrogen 19 H 7-18 MG/DL Creatinine 0.73 0.60-1.30 MG/DL Estimat Glomerular Filtration Rate 105 BUN/Creatinine Ratio 26 Glucose Level 94 70-105 MG/DL Calcium Level 9.0 8.5-10.1 MG/DL Corrected Calcium 8.9 8.5-10.1 MG/DL Total Bilirubin 0.2 0.1-1.0 MG/DL Aspartate Amino Transf (AST/SGOT) 18 5-34 U/L Alanine Aminotransferase (ALT/SGPT) 24 0-55 U/L Alkaline Phosphatase 85 40-136 U/L C-Reactive Protein High Sensitivity 0.36 0.00-0.50 MG/DL Total Protein 7.2 6.4-8.2 GM/DL Albumin 4.1 3.2-4.5 GM/DL Lipase 62 8-78 U/L Urine Color YELLOW Urine Clarity CLEAR Urine pH 6.0 5-9 Urine Specific Baldwin 1.015 L 1.016-1.022 Urine Protein NEGATIVE NEGATIVE Urine Glucose (UA) NEGATIVE NEGATIVE Urine Ketones NEGATIVE NEGATIVE Urine Nitrite NEGATIVE NEGATIVE Urine Bilirubin NEGATIVE NEGATIVE Urine Urobilinogen 0.2 < = 1.0 MG/DL Urine Leukocyte Esterase TRACE H NEGATIVE Urine RBC (Auto) NEGATIVE NEGATIVE Urine RBC NONE /HPF Urine WBC 0-2 /HPF Urine Squamous Epithelial Cells 0-2 /HPF Urine Crystals NONE /LPF Urine Bacteria TRACE /HPF Urine Casts NONE /LPF Urine Mucus NEGATIVE /LPF Urine Culture Indicated NO My Orders Orders - DIEGO LOUNG MD Cbc With Automated Diff (06/21/22 13:41) Comprehensive Metabolic Panel (06/21/22 13:41) Hs C Reactive Protein (06/21/22 13:41) Lipase (06/21/22 13:41) Ua Culture If Indicated (06/21/22 13:41) Ed Iv/Invasive Line Start (06/21/22 13:41) Morphine Injection (Morphine Injection (06/21/22 15:20) Ondansetron Injection (Zofran Injectio (06/21/22 15:30) Lactated Ringers (Lr 1000 Ml Iv Solution (06/21/22 15:30) Ct Abdomen/Pelvis W (06/21/22 15:21) Ns (Ivpb) (Sodium Chloride 0.9% Ivpb Bag (06/21/22 15:30) Iohexol Injection (Omnipaque 350 Mg/Ml 1 (06/21/22 15:30) Received Contrast (Hold Metformin- Contr (06/21/22 15:30) Morphine Injection (Morphine Injection (06/21/22 17:00) Lidocaine 2% Viscous 15 Ml (Xylocaine Vi (06/21/22 17:15) Medications Given in ED Vital Signs/I&O 06/21/22 13:40 Temp 36.8 Pulse 99 Resp 17 B/P (MAP) 142/93 (109) O2 Delivery Room Air 06/22/22 00:00 Intake Total 20 ml Balance 20 ml Blood Pressure Mean: 109 Progress Progress Note : Progress Note Labs were obtained including CBC, CMP, CRP, lipase, and urinalysis. All were reviewed by me and were unremarkable. Patient had very difficult IV access. I personally established an IV in the left arm under ultrasound guidance. Patient was then treated with morphine, Zofran, and IV fluids. She received a second dose of morphine later for rebound pain. Due to concern for possible small bowel obstruction, CT of the abdomen and pelvis was obtained. She was found to have a fecal impaction and constipation but no bowel obstruction. She was offered manual disimpaction. This was going to be a delayed procedure due to emergent trauma demands in the ER. Patient therefore elected to not wait and return home. She will treat herself with enemas and MiraLAX. A small quantity of hydrocodone was prescribed for pain management, but she was instructed not to take this unless absolutely necessary because of risk of worsening constipation. She requested Phenergan instead of Zofran because she states that Zofran is not very effective for her nausea. Departure Impression Primary Impression: Fecal impaction in rectum Additional Impressions: Crohn's disease Qualified Codes: K50.919 - Crohn's disease, unspecified, with unspecified complications Abdominal pain Qualified Codes: R10.84 - Generalized abdominal pain Nausea Disposition: HOME, SELF-CARE Condition: Improved Departure-Patient Inst. Decision time for Depature: 18:11 Referrals: NO,LOCAL PHYSICIAN (PCP/Family) Primary Care Physician Patient Instructions: Fecal Impaction Add. Discharge Instructions: Drink plenty of clear liquids. Adhere to a clear liquid diet until a significant bowel movement is produced. Use MiraLAX (polyethylene glycol) 1 dose every few hours until a good bowel movement is produced. Because you have fecal impaction in the rectum, you should also use a fleets enema. This may be repeated after several hours if needed. Try to use Tylenol (acetaminophen) alone for pain control. If pain is not tolerable, you may use the hydrocodone as prescribed. Hydrocodone may worsen constipation, so avoid it if possible. Follow-up with your primary care provider and vamp liner as soon as possible. Avoid NSAID medications such as ibuprofen and naproxen as they may worsen Crohn's disease complications. Use Phenergan as prescribed for nausea and vomiting. Return to care if you have worsening symptoms despite following these instructions. All discharge instructions reviewed with patient and/or family. Voiced understanding. Scripts Na Phos,M-B/Na Phos,Di-Ba (Fleet Enema) 19 Gram-7 Gram/118 Ml Enema 133 ML RC BID PRN for CONSTIPATION, #2 EA Prov: DIEGO LUONG MD 06/21/22 Polyethylene Glycol 3350 (Miralax) 17 Gram/Dose Powder 17 GM PO Q4H PRN for CONSTIPATION, #1 EA Prov: DIEGO LUONG MD 06/21/22 Hydrocodone/Acetaminophen (Hydrocodone-Acetamin 5-325 mg) 5 Mg-325 Mg Tablet 1 TAB PO Q4H PRN for PAIN-MODERATE (5-7), #5 TAB Prov: DIEGO LUONG MD 06/21/22 Promethazine HCl (Promethazine Tablet) 25 Mg Tablet 25 MG PO Q6H PRN for NAUSEA/VOMITING, #10 TAB Prov: DIEGO LUONG MD 06/21/22 DIEGO LUONG MD Jun 21, 2022 15:44
--- NOTE | 2022-06-21 16:06 | Diagnostic Imaging Report ---
PROCEDURE: CT abdomen and pelvis with contrast. TECHNIQUE: Multiple contiguous axial images were obtained through the abdomen and pelvis after administration of intravenous contrast. Auto Exposure Controls were utilized during the CT exam to meet ALARA standards for radiation dose reduction. All CT scans use one or more of the following dose optimizing techniques: automated exposure control, MA and/or KvP adjustment based on patient size and exam type or iterative reconstruction. DATE: June 21, 2022. COMPARISON: CT abdomen and pelvis March 26, 2014. INDICATION: 41-year-old female, abdominal pain, nausea, vomiting, and diarrhea. FINDINGS: There is mild dependent atelectasis in the right and left lower lobes. The heart is not enlarged. There is no pericardial effusion. The liver is unremarkable in size and contour. There is no identified liver lesion. The main, right, and left portal veins are patent. The gallbladder is absent. There is no intrahepatic or extrahepatic bile duct dilation. The main pancreatic duct is not abnormally dilated. Unremarkable appearance of the pancreatic parenchyma. The spleen is normal in size. The adrenal glands are unremarkable. Unremarkable appearance of the renal parenchyma. The urinary collecting systems are not distended. There is no identified renal or ureteral stone. Urinary bladder is unremarkable. There is some prominence of left-sided pelvic vasculature which could be seen with pelvic congestion syndrome. Correlation would be needed. There is a large volume of stool in the rectum and distal sigmoid colon which are moderately distended up to approximately 7.2 cm in diameter. The remainder of the colon is surgically absent. There is a small fat-containing umbilical hernia. There is no free intraperitoneal air. There is an additional right anterior abdominal wall hernia on axial image 99. There is no identified drainable fluid collection. There is no free fluid in the abdomen or pelvis. There is no identified abnormally enlarged lymph node in the abdomen or pelvis which meets CT size criteria for adenopathy. There is no identified acute bony abnormality. There are degenerative changes of the spine. IMPRESSION: CT ABDOMEN AND PELVIS. 1. Large volume stool in the rectum and distal sigmoid colon which are moderately distended up to 7.2 cm in diameter. 2. No identified acute abnormality in the abdomen or pelvis. 3. Small fat-containing umbilical hernia and additional right anterior abdominal wall hernia. 4. Mild prominence of left-sided pelvic vasculature which potentially could reflect pelvic congestion syndrome. Dictated by: Dictated on workstation # [id number]
[2022-06-21] MEDS ORDERED: LIDOCAINE 2% VISCOUS 15 ML UDC MM ONE (17:15)
[2022-06-21] MEDS ORDERED: POLY119P5 PO (18:16)
[2022-06-21] MEDS ORDERED: ACHD5005 PO (18:16)
[2022-06-21] MEDS ORDERED: PROM25TA14 PO (18:16)
[2022-06-21] MEDS ORDERED: NA P133E22 RC (18:16)
[2022-06-21 18:22] VITALS: BP 137/86
== END 2022-06-21 18:22 | disposition home or self-care (01) ==
LOC: EDUNIT# 13:39 → ER 13:40
DX: K56.41 Fecal impaction (principal); K50.90 Crohn's disease, unspecified, without complications; F17.210 Nicotine dependence, cigarettes, uncomplicated; Z90.49 Acquired absence of other specified parts of digestive tract; Z88.6 Allergy status to analgesic agent; Z28.311 Partially vaccinated for COVID-19
CPT/HCPCS: 36415; 74177; 80053; 81000; 83690; 85025; 86141; 96374; 96375; 96376; 99283

== ENCOUNTER 2022-07-14 09:27 | Emergency (ER) | payer MEDICARE, MEDICAID ==
[~2022-07-14 09:27] MED LIST changes: +ACHD5005 PO; +NA P133E22 RC; +POLY119P5 PO
--- NOTE | 2022-07-14 09:53 | ED General ---
General Chief Complaint: General Problems/Pain Stated Complaint: BODY PAINS Nursing Triage Note: PT BROUGHT IN BY [facility] FROM [facility] WITH COMPLAINT OF GENERALIZED BODY ACHES. HAS BEEN TO [facility] IN THE LAST TWO MORNINGS. STATES HX OF RA AND CHROHNS. Source of Information: Patient, EMS Exam Limitations: No Limitations History of Present Illness Date Seen by Provider: Jul 14, 2022 Time Seen by Provider: 09:38 Initial Comments 42-year-old female with history of rheumatoid arthritis, Crohn's disease presents to the emergency department today for "all over pain. She states she had a Humira injection a week and a half ago that was double the dose that she is used to. She thinks this may be causing her symptoms. She was seen at the [facility] clinic yesterday and given muscle relaxers. She went back there today and was advised that there is likely nothing we can do to further help her. She presents here via EMS for all over body pain. Pains are sporadic, intermittent but she has pain somewhere constantly for the last week and a half. She denies any fevers chills or focal symptoms. No injuries. All other systems reviewed and negative except documented per HPI. Voice recognition software was used to help create this chart Allergies and Home Medications Allergies Coded Allergies: meperidine (Verified Allergy, Unknown, 03/26/14) Patient Home Medication List Home Medication List Reviewed: Yes Atenolol (Tenormin 100 Mg) 100 Mg Tablet, 200 MG PO DAILY, (Reported) Entered as Reported by: ONEL HARRIS on 05/27/13 1145 Chlorpheniramine/Phenylephrine (Eql Sinus-Allergy PE Tablet) 4 Mg-10 Mg Tablet, 1 EACH PO Q6H PRN for congestion Prescribed by: JONATHAN POWER on 05/10/22 0001 Clonazepam (Klonopin) 1 Mg Tablet, 1 EACH PO BID, (Reported) Entered as Reported by: ONEL HARRIS on 05/27/13 1145 Dicyclomine Hcl (Bentyl) 20 Mg Tablet, 1 EACH PO AC, (Reported) Entered as Reported by: ONEL HARRIS on 05/27/13 1145 Duloxetine Hcl (Cymbalta Capsule) 30 Mg Cap, 90 MG PO DAILY, (Reported) Entered as Reported by: ONEL HARRIS on 05/27/13 1145 Hydrocodone/Acetaminophen (Hydrocodone-Acetamin 5-325 mg) 5 Mg-325 Mg Tablet, 1 TAB PO Q4H PRN for PAIN-MODERATE (5-7) Prescribed by: DIEGO BERGMAN on 06/21/22 181 Mesalamine (Pentasa) 250 Mg Cap, 1,000 MG PO QID, (Reported) Entered as Reported by: ONEL HARRIS on 05/27/13 1145 Mesalamine (Pentasa) 500 Mg Capsule.er, 1,000 MG PO Q6H Prescribed by: JONATHAN POWER on 05/10/22 0001 Na Phos,M-B/Na Phos,Di-Ba (Fleet Enema) 19 Gram-7 Gram/118 Ml Enema, 133 ML RC BID PRN for CONSTIPATION Prescribed by: DIEGO BERGMAN on 06/21/22 181 Pantoprazole Sodium (Protonix) 40 Mg Tablet.dr, 1 TAB PO DAILY Prescribed by: ANYI WHATLEY on 09/23/13 1349 Polyethylene Glycol 3350 (Miralax) 17 Gram/Dose Powder, 17 GM PO Q4H PRN for CONSTIPATION Prescribed by: DIEGO BERGMAN on 06/21/22 181 Promethazine HCl (Promethazine Tablet) 25 Mg Tablet, 25 MG PO Q8H PRN for NAUSEA/VOMITING Prescribed by: JENN ALLISON on 05/09/22 1611 Promethazine HCl (Promethazine Tablet) 25 Mg Tablet, 25 MG PO Q6H PRN for NAUSEA/VOMITING Prescribed by: DIEGO BERGMAN on 06/21/22 181 Promethazine Hcl (Phenergan Syrup 30 Ml) 6.25 Mg/5 Ml Syrp, 2 TSP PO Q6H PRN for VOMITING, (Reported) Entered as Reported by: HARDEEP SINCLAIR on 03/25/14 215 Review of Systems Review of Systems Constitutional: no symptoms reported Past Umiempa-Lfpjca-Ulmisb Hx Patient Social History Tobacco Use?: No Use of E-Cig and/or Vaping dev: No Substance use?: No Alcohol Use?: No Pt feels they are or have been: No Immunizations Up To Date First/Initial COVID19 Vaccinat: NONE Second COVID19 Vaccination Hung: NONE Third COVID19 Vaccination Date: NONE Past Medical History Surgeries: Yes (Port insertion and removeal) Abdominal, Appendectomy, Gallbladder, Tonsillectomy Respiratory: No Cardiac: No Neurological: No Reproductive Disorders: No Genitourinary: No Gastrointestinal: Yes Crohns Disease, Obstructive Bowel Musculoskeletal: Yes Rheumatoid Arthritis Endocrine: No HEENT: No Cancer: No Psychosocial: No Depression Integumentary: No Family Medical History Reviewed Nursing Family Hx No Pertinent Family Hx Physical Exam Vital Signs Vital Signs - First Documented 07/14/22 09:29 Temp 36.8 Pulse 101 Resp 20 B/P (MAP) 116/106 (109) Pulse Ox 100 O2 Delivery Room Air Capillary Refill : Less Than 3 Seconds Height, Weight, BMI Height: 5'7" Weight: 180lbs. oz. 81.134188am; 26.00 BMI Method:Stated General Appearance: No Apparent Distress, WD/WN Eyes: Bilateral Eye Normal Inspection, Bilateral Eye PERRL, Bilateral Eye EOMI HEENT: Normal ENT Inspection, Pharynx Normal Neck: Normal Inspection, Non Tender, Supple Respiratory: Chest Non Tender, Lungs Clear, Normal Breath Sounds, No Accessory Muscle Use, No Respiratory Distress Cardiovascular: Regular Rate, Rhythm, No Edema, No Murmur, Normal Peripheral Pulses Gastrointestinal: Normal Bowel Sounds, No Organomegaly, No Pulsatile Mass, Non Tender, Soft Back: Normal Inspection, No Vertebral Tenderness Extremity: Other (Patient has random pains when pressing in different places on her extremities sporadically. No bruising or deformity. No skin changes.) Neurologic/Psychiatric: Alert, Oriented x3, Normal Mood/Affect Skin: Normal Color, Warm/Dry Progress/Results/Core Measures Suspected Sepsis SIRS Temperature: Pulse: 101 Respiratory Rate: 20 Laboratory Tests 07/14/22 09:50: White Blood Count 10.4 Blood Pressure 116 /106 Mean: 109 Laboratory Tests 07/14/22 09:50: Creatinine 0.76, Platelet Count 296 Results/Orders Lab Results Laboratory Tests Test 07/14/22 09:50 Range/Units White Blood Count 10.4 4.3-11.0 10^3/uL Red Blood Count 4.56 3.80-5.11 10^6/uL Hemoglobin 13.3 11.5-16.0 g/dL Hematocrit 39 35-52 % Mean Corpuscular Volume 85 80-99 fL Mean Corpuscular Hemoglobin 29 25-34 pg Mean Corpuscular Hemoglobin Concent 34 32-36 g/dL Red Cell Distribution Width 13.2 10.0-14.5 % Platelet Count 296 130-400 10^3/uL Mean Platelet Volume 8.5 L 9.0-12.2 fL Immature Granulocyte % (Auto) 1 % Neutrophils (%) (Auto) 48 42-75 % Lymphocytes (%) (Auto) 39 12-44 % Monocytes (%) (Auto) 8 0-12 % Eosinophils (%) (Auto) 3 0-10 % Basophils (%) (Auto) 1 0-10 % Neutrophils # (Auto) 5.1 1.8-7.8 10^3/uL Lymphocytes # (Auto) 4.1 H 1.0-4.0 10^3/uL Monocytes # (Auto) 0.8 0.0-1.0 10^3/uL Eosinophils # (Auto) 0.3 0.0-0.3 10^3/uL Basophils # (Auto) 0.1 0.0-0.1 10^3/uL Immature Granulocyte # (Auto) 0.1 0.0-0.1 10^3/uL Sodium Level 137 135-145 MMOL/L Potassium Level 4.3 3.6-5.0 MMOL/L Chloride Level 105 98-107 MMOL/L Carbon Dioxide Level 21 21-32 MMOL/L Anion Gap 11 5-14 MMOL/L Blood Urea Nitrogen 17 7-18 MG/DL Creatinine 0.76 0.60-1.30 MG/DL Estimat Glomerular Filtration Rate 100 BUN/Creatinine Ratio 22 Glucose Level 89 70-105 MG/DL Calcium Level 9.0 8.5-10.1 MG/DL My Orders Orders - CHAD SHANE DO Basic Metabolic Panel (07/14/22 09:32) Cbc With Automated Diff (07/14/22 09:32) Vital Signs/I&O 07/14/22 09:29 Temp 36.8 Pulse 101 Resp 20 B/P (MAP) 116/106 (109) Pulse Ox 100 O2 Delivery Room Air Capillary Refill : Less Than 3 Seconds Blood Pressure Mean: 109 Departure Communication (Admissions) Advised the patient that muscle relaxers likely appropriate for this type of pain. She cannot take anti-inflammatory medicine secondary to Crohn's and the risk of ulceration. Advised I did not think that narcotic pain medications were a good choice. I did advise her that I want to be sure there is no electrolyte abnormality such as hypo or hyperkalemia, hypo or hypercalcemia causing her symptoms so we will go ahead and get some labs. She is agreeable to this. 1010: Patient coming back into the room asking for something for pain. Advised her I would give her p.o. Tylenol for a one-time dose of anti-inflammatories. She declines anti-inflammatories due to her Crohn's disease. She states Tylenol does not work for her. I advised that I did not think a stronger medication was indicated for this type of pain she becomes irritated and says "you are one of t hose doctors arent you?" I advised that I did not believe it appropriate to give narcotic type pain medication for the type of pain that she was having once again. She is visibly irritated. She is in no distress and has normal vital signs. 1018: Nurse informed me that the patient would like her discharge instructions. Her labs just came back and they are normal. No evidence for electrolyte abnormality causing her symptoms. There is no indication of an emergent medical condition at this time. She is discharged home in stable condition with primary care and specialty follow-up Impression Primary Impression: Diffuse pain Disposition: 01 HOME, SELF-CARE Condition: Stable Departure-Patient Inst. Referrals: NO,LOCAL PHYSICIAN (PCP/Family) Primary Care Physician Patient Instructions: Acute Pain, Adult (DC) Add. Discharge Instructions: Use Tylenol and home medications as needed for pain. Continue to use muscle relaxers provided by the [facility] clinic as needed return to the emergency department for any severe concerns. Follow-up with all specialist as previously scheduled. You may want to see your rheumatoid specialist at an earlier date. Recommend you call to see if this is a possibility. All discharge instructions reviewed with patient and/or family. Voiced understanding. CHAD SHANE DO Jul 14, 2022 09:53
[2022-07-14 09:57] LABS: BASOPHILS # (AUTO) 0.1 10^3/uL (0.0-0.1); BASOPHILS % (AUTO) 1 % (0-10); EOSINOPHILS # (AUTO) 0.3 10^3/uL (0.0-0.3); EOSINOPHILS % (AUTO) 3 % (0-10); HEMATOCRIT 39 % (35-52); HEMOGLOBIN 13.3 g/dL (11.5-16.0); LYMPHOCYTES # (AUTO) 4.1 10^3/uL (1.0-4.0); LYMPHOCYTES % (AUTO) 39 % (12-44); MEAN CORPUSCULAR HEMOGLOBIN 29 pg (25-34); MEAN CORPUSCULAR HGB CONC 34 g/dL (32-36); MEAN CORPUSCULAR VOLUME 85 fL (80-99); MEAN PLATELET VOLUME 8.5 fL (9.0-12.2); MONOCYTES # (AUTO) 0.8 10^3/uL (0.0-1.0); MONOCYTES % (AUTO) 8 % (0-12); NEUTROPHILS # (AUTO) 5.1 10^3/uL (1.8-7.8); NEUTROPHILS % (AUTO) 48 % (42-75); PLATELET COUNT 296 10^3/uL (130-400); WHITE BLOOD COUNT 10.4 10^3/uL (4.3-11.0)
[2022-07-14 10:10] LABS: POTASSIUM 4.3 MMOL/L (3.6-5.0)
[2022-07-14 10:15] LABS: CREATININE SERUM 0.76 MG/DL (0.60-1.30)
[2022-07-14 10:19] VITALS: BP 116/106
== END 2022-07-14 10:19 | disposition home or self-care (01) ==
LOC: EDUNIT# 09:27 → ER 09:27
DX: R52 Pain, unspecified (principal); Z87.39 Personal history of other diseases of the musculoskeletal system and connective tissue; Z87.19 Personal history of other diseases of the digestive system
CPT/HCPCS: 36415; 80048; 85025; 99283

== ENCOUNTER 2022-07-24 11:36 | Emergency (ER) | payer MEDICARE, MEDICAID ==
[~2022-07-24] VITALS: Ht 170 cm; Wt 92.0 kg
--- NOTE | 2022-07-24 12:04 | ED Abdominal Pain ---
General Chief Complaint: Abdominal/GI Problems Stated Complaint: ABD PAIN Nursing Triage Note: ABDPAIN STARTING YESTERDAY WITH N/V/D. Source of Information: Patient Exam Limitations: No Limitations History of Present Illness Date Seen by Provider: Jul 24, 2022 Time Seen by Provider: 12:04 Initial Comments 42-year-old presents to the emergency room today with a chief complaint of bloating abdomen, abdominal pain, nausea vomiting and diarrhea. She states symptom onset since yesterday shortly after she had her Humira injection. She has a history of Crohn's disease with prior colectomy. She follows with GI and primary care doctor. She states no fever, chills, URI symptoms. No productive cough. Movement makes her pain worse. Nothing really makes it any better. She does have home pain medications, tramadol. No black or bloody stools. She has not vomited blood. No history of bowel obstruction that she is aware of. She states she has been trying to drink fluids and she has been up and walking. Timing/Duration: 24 Hours Severity/Quality: Severe, Cramping, Other (abdominal distension) Location: Generalized Abdomen Radiation: No Radiation Activities at Onset: None Associated Symptoms: Nausea/Vomiting, Swelling/Mass in Abdomen Allergies and Home Medications Allergies Coded Allergies: meperidine (Verified Allergy, Unknown, 03/26/14) olanzapine (Verified Allergy, Unknown, 07/24/22) "MADE MY HEART RATE GO THROUGH THE ROOF" Patient Home Medication List Home Medication List Reviewed: Yes Atenolol (Tenormin 100 Mg) 100 Mg Tablet, 200 MG PO DAILY, (Reported) Entered as Reported by: ONEL HARRIS on 05/27/13 1145 Chlorpheniramine/Phenylephrine (Eql Sinus-Allergy PE Tablet) 4 Mg-10 Mg Tablet, 1 EACH PO Q6H PRN for congestion Prescribed by: JONATHAN POWER on 05/10/22 0001 Clonazepam (Klonopin) 1 Mg Tablet, 1 EACH PO BID, (Reported) Entered as Reported by: ONEL HARRIS on 05/27/13 1145 Dicyclomine Hcl (Bentyl) 20 Mg Tablet, 1 EACH PO AC, (Reported) Entered as Reported by: ONEL HARRIS on 05/27/13 1145 Duloxetine Hcl (Cymbalta Capsule) 30 Mg Cap, 90 MG PO DAILY, (Reported) Entered as Reported by: ONEL HARRIS on 05/27/13 1145 Hydrocodone/Acetaminophen (Hydrocodone-Acetamin 5-325 mg) 5 Mg-325 Mg Tablet, 1 TAB PO Q4H PRN for PAIN-MODERATE (5-7) Prescribed by: DIEGO BERGMAN on 06/21/221816 Mesalamine (Pentasa) 250 Mg Cap, 1,000 MG PO QID, (Reported) Entered as Reported by: ONEL HARRIS on 05/27/13 1145 Mesalamine (Pentasa) 500 Mg Capsule.er, 1,000 MG PO Q6H Prescribed by: JONATHAN POWER on 05/10/22 0001 Na Phos,M-B/Na Phos,Di-Ba (Fleet Enema) 19 Gram-7 Gram/118 Ml Enema, 133 ML RC BID PRN for CONSTIPATION Prescribed by: DIEGO BERGMAN on 06/21/221815 Pantoprazole Sodium (Protonix) 40 Mg Tablet.dr, 1 TAB PO DAILY Prescribed by: ANYI WHATLEY on 09/23/13 1349 Polyethylene Glycol 3350 (Miralax) 17 Gram/Dose Powder, 17 GM PO Q4H PRN for CONSTIPATION Prescribed by: DIEGO BERGMAN on 06/21/221815 Promethazine HCl (Promethazine Tablet) 25 Mg Tablet, 25 MG PO Q8H PRN for NAUSEA/VOMITING Prescribed by: JENN ALLISON on 05/09/22 1611 Promethazine HCl (Promethazine Tablet) 25 Mg Tablet, 25 MG PO Q6H PRN for NAUSEA/VOMITING Prescribed by: DIEGO BERGMAN on 06/21/221815 Promethazine Hcl (Phenergan Syrup 30 Ml) 6.25 Mg/5 Ml Syrp, 2 TSP PO Q6H PRN for VOMITING, (Reported) Entered as Reported by: HARDEEP SINCLAIR on 03/25/142158 Review of Systems Review of Systems Constitutional: see HPI EENTM: No Symptoms Reported Respiratory: No Symptoms Reported Cardiovascular: No Symptoms Reported Gastrointestinal: Abdominal Pain, Diarrhea, Nausea, Vomiting Genitourinary: No Symptoms Reported Musculoskeletal: no symptoms reported Skin: no symptoms reported Psychiatric/Neurological: No Symptoms Reported All Other Systems Reviewed Negative Unless Noted: Yes Past Fhluzlk-Hpfcyw-Lngvmi Hx Patient Social History Tobacco Use?: Yes Smoking Status: Current Everyday Smoker Substance use?: No Alcohol Use?: No Immunizations Up To Date First/Initial COVID19 Vaccinat: NONE Second COVID19 Vaccination Hung: NONE Third COVID19 Vaccination Date: NONE COVID19 Vaccine 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 Past Medical History Surgeries: Yes (Port insertion and removeal) Abdominal, Appendectomy, Gallbladder, Tonsillectomy Respiratory: No Cardiac: No Neurological: No Reproductive Disorders: No Genitourinary: No Gastrointestinal: Yes Crohns Disease, Obstructive Bowel Musculoskeletal: Yes Rheumatoid Arthritis Endocrine: No HEENT: No Cancer: No Psychosocial: No Depression Integumentary: No Family Medical History No Pertinent Family Hx Physical Exam Vital Signs Vital Signs - First Documented 07/24/22 11:40 Temp 36.7 Pulse 93 Resp 16 B/P (MAP) 138/99 (112) Pulse Ox 97 O2 Delivery Room Air Capillary Refill : Less Than 3 Seconds Height/Weight/BMI Height: 5'7" Weight: 180lbs. oz. 81.599446dq; 31.00 BMI Method:Stated General Appearance: WD/WN, no apparent distress HEENT: PERRL/EOMI Neck: full range of motion Respiratory: lungs clear, normal breath sounds, no respiratory distress, no accessory muscle use Cardiovascular: regular rate, rhythm Gastrointestinal: soft, distended, other (Mildly diffusely tender, bowel sounds are present) Extremities: normal range of motion, normal inspection Neurologic/Psychiatric: alert, normal mood/affect, oriented x 3 Skin: normal color, warm/dry Progress/Results/Core Measures Results/Orders Lab Results Laboratory Tests Test 07/24/22 13:45 Range/Units White Blood Count 9.8 4.3-11.0 10^3/uL Red Blood Count 4.18 3.80-5.11 10^6/uL Hemoglobin 12.3 11.5-16.0 g/dL Hematocrit 36 35-52 % Mean Corpuscular Volume 87 80-99 fL Mean Corpuscular Hemoglobin 29 25-34 pg Mean Corpuscular Hemoglobin Concent 34 32-36 g/dL Red Cell Distribution Width 13.3 10.0-14.5 % Platelet Count 249 130-400 10^3/uL Mean Platelet Volume 8.6 L 9.0-12.2 fL Immature Granulocyte % (Auto) 0 % Neutrophils (%) (Auto) 52 42-75 % Lymphocytes (%) (Auto) 38 12-44 % Monocytes (%) (Auto) 7 0-12 % Eosinophils (%) (Auto) 2 0-10 % Basophils (%) (Auto) 1 0-10 % Neutrophils # (Auto) 5.1 1.8-7.8 10^3/uL Lymphocytes # (Auto) 3.7 1.0-4.0 10^3/uL Monocytes # (Auto) 0.7 0.0-1.0 10^3/uL Eosinophils # (Auto) 0.2 0.0-0.3 10^3/uL Basophils # (Auto) 0.1 0.0-0.1 10^3/uL Immature Granulocyte # (Auto) 0.0 0.0-0.1 10^3/uL Sodium Level 138 135-145 MMOL/L Potassium Level 4.1 3.6-5.0 MMOL/L Chloride Level 106 98-107 MMOL/L Carbon Dioxide Level 24 21-32 MMOL/L Anion Gap 8 5-14 MMOL/L Blood Urea Nitrogen 14 7-18 MG/DL Creatinine 0.71 0.60-1.30 MG/DL Estimat Glomerular Filtration Rate 108 BUN/Creatinine Ratio 20 Glucose Level 87 70-105 MG/DL Calcium Level 8.9 8.5-10.1 MG/DL Corrected Calcium 9.1 8.5-10.1 MG/DL Total Bilirubin 0.2 0.1-1.0 MG/DL Aspartate Amino Transf (AST/SGOT) 22 5-34 U/L Alanine Aminotransferase (ALT/SGPT) 27 0-55 U/L Alkaline Phosphatase 56 40-136 U/L C-Reactive Protein High Sensitivity 0.19 0.00-0.50 MG/DL Total Protein 6.7 6.4-8.2 GM/DL Albumin 3.8 3.2-4.5 GM/DL My Orders Orders - JONATHAN POWER MD Ed Iv/Invasive Line Start (07/24/22 12:11) Cbc With Automated Diff (07/24/22 12:11) Comprehensive Metabolic Panel (07/24/22 12:11) Hs C Reactive Protein (07/24/22 12:11) Ns Iv 1000 Ml (Sodium Chloride 0.9%) (07/24/22 12:11) Morphine Injection (Morphine Injection (07/24/22 12:11) Ondansetron Injection (Zofran Injectio (07/24/22 12:15) Ct Abdomen/Pelvis Wo (07/24/22 12:11) Morphine Injection (Morphine Injection (07/24/22 12:37) Medications Given in ED Current Medications Medications Dose Ordered Sig/Kenna Route Start Time Stop Time Status Last Admin Dose Admin Ondansetron HCl 4 mg ONCE ONCE IVP 07/24/22 12:15 07/24/22 12:16 DC 07/24/22 13:41 4 MG Vital Signs/I&O 07/24/22 11:40 Temp 36.7 Pulse 93 Resp 16 B/P (MAP) 138/99 (112) Pulse Ox 97 O2 Delivery Room Air Blood Pressure Mean: 112 Progress Progress Note : Time: 14:46 Progress Note Patient seen and evaluated by me. 42-year-old with abdominal pain. Evaluation today includes physical exam, CBC, comprehensive metabolic panel and CT of the abdomen and pelvis without IV contrast. Patient was treated with IV fluids and morphine. Pertinent physical exam findings include distended abdomen, soft minimally tender to palpation no peritoneal findings such as involuntary guarding or rebound. Lungs are clear heart is regular. The patient does not appear dehydrated. Differential diagnosis includes enteritis, partial or full bowel obstruction. Labs reviewed. CBC completely normal, CMP normal CT abd/pelvis no acute findings. Patient obtained some relief from IV morphine. She is reassured. VS are stable. She has medications at home to treat her pain. I advised her to touch base with her GI doctor. Return precautions given. If she has fever, vo mits or passes blood in her stool or has any other concerning worsening, to come back to the [facility]. She is comfortable with the plan of care. All questions are sought and answered,. Diagnostic Imaging Diagonstic Imaging: CT Comments [facility], [place] NAME: BRENDAANDIEROMELJILLIAN M MED REC#: [id number] PT STATUS: REG ER : 1980 PHYSICIAN: JONATHAN POWER MD ADMIT DATE: 07/24/22/ER Draft Date of Exam:07/24/22 CT ABDOMEN/PELVIS WO PROCEDURE: CT abdomen and pelvis without contrast. TECHNIQUE: Multiple contiguous axial images were obtained through the abdomen and pelvis without the use of intravenous contrast. Auto Exposure Controls were utilized during the CT exam to meet ALARA standards for radiation dose reduction. INDICATION: Abdominal distention with nausea and emesis as well as abdominal pain. COMPARISON: 06/21/2022. FINDINGS: Unenhanced images of liver, pancreas, adrenal glands and spleen are unremarkable. There is no evidence of renal mass or hydronephrosis. 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 Focal defect in the anterior abdominal wall to the right of umbilicus is stable. There is no evidence of bowel hernia. No bowel obstruction is identified. There are surgical sutures involving right lower quadrant small bowel loops and the level of the distal colon near the rectum. No organized fluid collection is identified. There is mild presacral density which is stable and likely represents scarring. Unopacified bladder is unremarkable in appearance. IMPRESSION: No evidence of acute abnormality or adverse change. Surgical findings are again seen in distal small bowel and colon. No significant inflammation, organized fluid collection or bowel obstruction is appreciated. Dictated on workstation # [id number] Dict: 07/24/22 1229 Trans: 07/24/22 1249 [id number] Interpreted by: KIRSTEN PALOMINO MD Electronically signed by: Departure Impression Primary Impression: Abdominal pain Qualified Codes: R10.84 - Generalized abdominal pain Disposition: 01 HOME, SELF-CARE Condition: Improved Departure-Patient Inst. Decision time for Depature: 14:50 Referrals: NO,LOCAL PHYSICIAN (PCP/Family) Primary Care Physician Patient Instructions: Abdominal Pain, Adult ED Add. Discharge Instructions: Please continue your daily prescribed medications as directed by your primary care physician. If you develop a fever or pass blood in your stool or have blood in your vomit or any other emergent, worsening symptoms please return to the emergency room for reevaluation. Please contact your GI doctor's office for further evaluation and management Follow a bland diet today and then slowly advance as tolerated tomorrow. JONATHAN POWER MD Jul 24, 2022 12:04
[2022-07-24] MEDS ORDERED: NS IV 1000 ML 1,000 ML IV STA (12:11)
[2022-07-24] MEDS ORDERED: morphine INJ 10 MG/ML 1ML (SYR OR VIAL) IVP STA (12:11)
[2022-07-24] MEDS ORDERED: ONDANSETRON 4 MG/2 ML (SDV) Z0FRAN IVP ONE (12:15)
[2022-07-24] MEDS ORDERED: morphine INJ 10 MG/ML 1ML (SYR OR VIAL) IM STA (12:37)
--- NOTE | 2022-07-24 12:50 | Diagnostic Imaging Report ---
PROCEDURE: CT abdomen and pelvis without contrast. TECHNIQUE: Multiple contiguous axial images were obtained through the abdomen and pelvis without the use of intravenous contrast. Auto Exposure Controls were utilized during the CT exam to meet ALARA standards for radiation dose reduction. INDICATION: Abdominal distention with nausea and emesis as well as abdominal pain. COMPARISON: 06/21/2022. FINDINGS: Unenhanced images of liver, pancreas, adrenal glands and spleen are unremarkable. There is no evidence of renal mass or hydronephrosis. 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 Focal defect in the anterior abdominal wall to the right of umbilicus is stable. There is no evidence of bowel hernia. No bowel obstruction is identified. There are surgical sutures involving right lower quadrant small bowel loops and the level of the distal colon near the rectum. No organized fluid collection is identified. There is mild presacral density which is stable and likely represents scarring. Unopacified bladder is unremarkable in appearance. IMPRESSION: No evidence of acute abnormality or adverse change. Surgical findings are again seen in distal small bowel and colon. No significant inflammation, organized fluid collection or bowel obstruction is appreciated. Dictated by: Dictated on workstation # [id number]
[2022-07-24 13:50] LABS: BASOPHILS # (AUTO) 0.1 10^3/uL (0.0-0.1); BASOPHILS % (AUTO) 1 % (0-10); EOSINOPHILS # (AUTO) 0.2 10^3/uL (0.0-0.3); EOSINOPHILS % (AUTO) 2 % (0-10); HEMATOCRIT 36 % (35-52); HEMOGLOBIN 12.3 g/dL (11.5-16.0); LYMPHOCYTES # (AUTO) 3.7 10^3/uL (1.0-4.0); LYMPHOCYTES % (AUTO) 38 % (12-44); MEAN CORPUSCULAR HEMOGLOBIN 29 pg (25-34); MEAN CORPUSCULAR HGB CONC 34 g/dL (32-36); MEAN CORPUSCULAR VOLUME 87 fL (80-99); MEAN PLATELET VOLUME 8.6 fL (9.0-12.2); MONOCYTES # (AUTO) 0.7 10^3/uL (0.0-1.0); MONOCYTES % (AUTO) 7 % (0-12); NEUTROPHILS # (AUTO) 5.1 10^3/uL (1.8-7.8); NEUTROPHILS % (AUTO) 52 % (42-75); PLATELET COUNT 249 10^3/uL (130-400); WHITE BLOOD COUNT 9.8 10^3/uL (4.3-11.0)
[2022-07-24 14:02] LABS: ALBUMIN 3.8 GM/DL (3.2-4.5); POTASSIUM 4.1 MMOL/L (3.6-5.0)
[2022-07-24 14:03] LABS: CALCIUM 8.9 MG/DL (8.5-10.1)
[2022-07-24 14:04] LABS: TOTAL PROTEIN 6.7 GM/DL (6.4-8.2)
[2022-07-24 14:06] LABS: BILIRUBIN,TOTAL 0.2 MG/DL (0.1-1.0)
[2022-07-24 14:08] LABS: CREATININE SERUM 0.71 MG/DL (0.60-1.30)
[2022-07-24 15:04] VITALS: BP 124/88
== END 2022-07-24 15:05 | disposition home or self-care (01) ==
LOC: EDUNIT# 11:36 → ER 11:37
DX: R10.84 Generalized abdominal pain (principal); R11.2 Nausea with vomiting, unspecified; R14.0 Abdominal distension (gaseous); R19.7 Diarrhea, unspecified; F17.200 Nicotine dependence, unspecified, uncomplicated; Z87.19 Personal history of other diseases of the digestive system; Z90.49 Acquired absence of other specified parts of digestive tract
CPT/HCPCS: 36410; 74176; 76937; 80053; 85025; 86141; C1751; 36415

== ENCOUNTER 2022-08-01 18:05 | Emergency (ER) | payer MEDICARE, MEDICAID ==
[~2022-08-01] VITALS: Ht 170 cm; Wt 97.5 kg
[2022-08-01] MEDS ORDERED: LIDOCAINE UROJET 2% GEL 10 ML PKG TOP ONE (18:15)
[2022-08-01] MEDS ORDERED: ONDANSETRON 4 MG/2 ML (SDV) Z0FRAN IVP ONE (18:15)
--- NOTE | 2022-08-01 18:22 | ED Headache ---
General Chief Complaint: Head/Cervical Problems Stated Complaint: HEADACHE Nursing Triage Note: pt brought in by EMS with c/o headache that began this morning upon waking up. pt reports pain is back left occiptal region with acute right eye vision changes and burning sensation that radiates down neck. pt took tylenol around 1730. Source: patient History of Present Illness Date Seen by Provider: Aug 01, 2022 Time Seen by Provider: 18:07 Initial Comments PT ARRIVES VIA EMS FROM HOME--NO IV OR TREATMENT BY EMS C/O SEVERE HEADACHE SINCE WAKING THIS MORNING PAIN IS IN LEFT OCCIPITAL AREA, WITH A BURNING SENSATION DOWN TO HER NECK NO NECK STIFFNESS OR ACTUAL PAIN IN HER NECK SHE HAS HAD "CLOUDY" VISION IN RIGHT EYE SINCE YESTERDAY NO PARESTHESIAS OR MOTOR DEFICITS NO PROBLEMS WITH BALANCE NO PROBLEMS WITH HEARING NO DIZZINESS + NAUSEA, NO VOMITING NO FEVER SHE WAS SEEN AT [facility] LAST WEEK FOR URI/BRONCHITIS, AND WAS ON ANTIBIOTICS. SHE HAS FINISHED THOSE, AND THOSE SYMPTOMS ARE BETTER. 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 SHE ALSO HAS R.A. SHE TAKES HUMIRA. SHE DENIES HISTORY OF HEADACHES SHE DENIES HISTORY OF HTN. STATES SHE HAS "SVT OR A MURMUR--I DON'T KNOW WHAT I HAVE" SHE HAS NOT HAD ANY TREATMENT FOR EITHER, AND NO MEDICATIONS FOR EITHER CONDITION. PT WITH MULTIPLE ER VISITS FOR VARIOUS PAIN COMPLAINTS, CHRONIC ABDOMINAL PAIN, CHRONIC GENERALIZED PAIN / JOINT PAIN SHE HAS LONG HISTORY OF CHRONIC OPIATE USE, AND TYPICALLY REQUESTS DILAUDID AND PHENERGAN ON ARRIVAL IN ER. PT STATES SHE HAS NOT HAD ANY PAIN MEDICATIONS "IN YEARS" PT RECEIVED RX FOR HYDROCODONE AT ER VISIT HERE 06/21/22 FOR FECAL IMPACTION, IN ADDITION TO MULTIPLE DOSES OF MORPHINE IN ER. SHE ALSO RECEIVED MULTIPLE DOSES OF MORPHINE HERE IN ER ON 07/24/22 FOR CHRONIC ABDOMINAL PAIN COMPLAINT PCP: [facility] GI SPECIALIST WITH [facility] Allergies and Home Medications Allergies Coded Allergies: meperidine (Verified Allergy, Unknown, 03/26/14) olanzapine (Verified Allergy, Unknown, 07/24/22) "MADE MY HEART RATE GO THROUGH THE ROOF" Patient Home Medication List Atenolol (Tenormin 100 Mg) 100 Mg Tablet, 200 MG PO DAILY, (Reported) Entered as Reported by: ONEL HARRIS on 05/27/13 1145 Chlorpheniramine/Phenylephrine (Eql Sinus-Allergy PE Tablet) 4 Mg-10 Mg Tablet, 1 EACH PO Q6H PRN for congestion Prescribed by: JONATHAN POWER on 05/10/22 0001 Clonazepam (Klonopin) 1 Mg Tablet, 1 EACH PO BID, (Reported) Entered as Reported by: ONEL HARRIS on 05/27/13 1145 Dicyclomine Hcl (Bentyl) 20 Mg Tablet, 1 EACH PO AC, (Reported) Entered as Reported by: ONEL HARRIS on 05/27/13 1145 Duloxetine Hcl (Cymbalta Capsule) 30 Mg Cap, 90 MG PO DAILY, (Reported) Entered as Reported by: ONEL HARRIS on 05/27/13 1145 Hydrocodone/Acetaminophen (Hydrocodone-Acetamin 5-325 mg) 5 Mg-325 Mg Tablet, 1 TAB PO Q4H PRN for PAIN-MODERATE (5-7) Prescribed by: DIEGO BERGMAN on 06/21/221816 Mesalamine (Pentasa) 250 Mg Cap, 1,000 MG PO QID, (Reported) Entered as Reported by: ONEL HARRIS on 05/27/13 1145 Mesalamine (Pentasa) 500 Mg Capsule.er, 1,000 MG PO Q6H Prescribed by: JONATHAN POWER on 05/10/22 0001 Na Phos,M-B/Na Phos,Di-Ba (Fleet Enema) 19 Gram-7 Gram/118 Ml Enema, 133 ML RC BID PRN for CONSTIPATION Prescribed by: DIEGO BERGMAN on 06/21/22 181 Pantoprazole Sodium (Protonix) 40 Mg Tablet.dr, 1 TAB PO DAILY Prescribed by: ANYI WHATLEY on 09/23/13 1349 Polyethylene Glycol 3350 (Miralax) 17 Gram/Dose Powder, 17 GM PO Q4H PRN for CONSTIPATION Prescribed by: DIEGO BERGMAN on 06/21/22 181 Promethazine HCl (Promethazine Tablet) 25 Mg Tablet, 25 MG PO Q8H PRN for NAUSEA/VOMITING Prescribed by: JENN ALLISON on 05/09/22 1611 Promethazine HCl (Promethazine Tablet) 25 Mg Tablet, 25 MG PO Q6H PRN for NAUSEA/VOMITING Prescribed by: DIEGO BERGMAN on 06/21/22 1816 Promethazine Hcl (Phenergan Syrup 30 Ml) 6.25 Mg/5 Ml Syrp, 2 TSP PO Q6H PRN for VOMITING, (Reported) Entered as Reported by: HARDEEP SINCLAIR on 03/25/142158 Review of Systems Review of Systems Constitutional: no symptoms reported; No dizziness Eyes: See HPI, Blurred Vision, Decreased Acuity; Denies Photophobia; Vision Changes Ears, Nose, Mouth, Throat: see HPI Respiratory: see HPI; No short of breath Cardiovascular: no symptoms reported Gastrointestinal: see HPI; No abdominal pain, No diarrhea; nausea; No vomiting Genitourinary: no symptoms reported Musculoskeletal: see HPI Skin: no symptoms reported Psychiatric/Neurological: See HPI, Headache; Denies Numbness, Denies Paresthesia, Denies Seizure, Denies Tingling, Denies Tremors, Denies Weakness Past Vrsjifl-Iywsir-Lrmwpg Hx Patient Social History Tobacco Use?: Yes Tobacco type used: Cigarettes Smoking Status: Current Everyday Smoker Substance use?: No Alcohol Use?: No Pt feels they are or have been: No Immunizations Up To Date Influenza Vaccine Up-to-Date: Yes; Up-to-Date First/Initial COVID19 Vaccinat: NONE Second COVID19 Vaccination Hung: NONE Third COVID19 Vaccination Date: NONE Past Medical History Surgeries: Yes (Port insertion and removeal) Abdominal, Appendectomy, Gallbladder, Tonsillectomy Respiratory: No Cardiac: No Neurological: No Reproductive Disorders: No Genitourinary: No Gastrointestinal: Yes (TOXIC MEGACOLON;S/P SUBTOTAL COLECTOMY & PARTIAL SMALL BOWEL REM;APPY;FRANCISCO) Crohns Disease, Obstructive Bowel, Chronic Constipation, Chronic Diarrhea, Gall Bladder Disease Musculoskeletal: Yes Rheumatoid Arthritis Endocrine: No HEENT: No (GLASSES) Cancer: No Psychosocial: Yes Depression Integumentary: No Family Medical History No Pertinent Family Hx SOCIAL HISTORY: -SMOKES 1 PPD -ETOH--DENIES USE -DRUGS--THC USE, LONG HISTORY OF CHRONIC OPIATE USE/ABUSE PAST SURGICAL HISTORY: -SUBTOTAL COLECTOMY -PARTIAL SMALL BOWEL REMOVAL/RESECTION -OVARIAN CYST REMOVAL, PARTIAL RIGHT OOPHORECTOMY -COLONOSCOPIES -ILEOSTOMY X 2 WITH REVERSAL -APPENDECTOMY -CHOLECTYSTECTOMY -TONSILLECTOMY -PORT PLACED, LATER REMOVED DUE TO INFECTION. Physical Exam Vital Signs Vital Signs - First Documented 08/01/22 18:11 Temp 37.0 Pulse 97 Resp 20 B/P (MAP) 138/91 (107) Pulse Ox 95 O2 Delivery Room Air Capillary Refill : Less Than 3 Seconds Height, Weight, BMI Height: 5'7" Weight: 180lbs. oz. [id number]; 33.00 BMI Method:Stated General Appearance: WD/WN, no apparent distress, other (ARRIVES WITH BLANKET OVER FACE. ON EXAM, SHE IS NOT PHOTOPHOBIC. REEKS OF CIGARETTES) HEENT: PERRL/EOMI, normal ENT inspection, TMs normal, pharynx normal, other (EDENTULOUS. FREQUENT LIP LICKING) Neck: non-tender, full range of motion, supple, normal inspection Cardiovascular: normal peripheral pulses, regular rate, rhythm, no edema, no murmur Respiratory: normal breath sounds, no respiratory distress, no accessory muscle use Gastrointestinal: non tender, soft Back: no CVA tenderness, no vertebral tenderness Extremities: normal range of motion, non-tender, normal inspection, no pedal edema, no calf tenderness, normal capillary refill Psychiatric: alert, oriented x 3 Crainal Nerves: normal hearing, normal speech, PERRL Coordination/Gait: normal gait Motor/Sensory: no motor deficit, no sensory deficit, no pronator drift Skin: normal color, warm/dry; No rash Progress/Results/Core Measures Results/Orders Lab Results Laboratory Tests Test 08/01/22 18:21 08/01/22 18:29 08/01/22 19:08 Range/Units White Blood Count 12.0 H 4.3-11.0 10^3/uL Red Blood Count 4.72 3.80-5.11 10^6/uL Hemoglobin 13.9 11.5-16.0 g/dL Hematocrit 40 35-52 % Mean Corpuscular Volume 85 80-99 fL Mean Corpuscular Hemoglobin 29 25-34 pg Mean Corpuscular Hemoglobin Concent 35 32-36 g/dL Red Cell Distribution Width 13.4 10.0-14.5 % Platelet Count 285 130-400 10^3/uL Mean Platelet Volume 8.6 L 9.0-12.2 fL Immature Granulocyte % (Auto) 1 % Neutrophils (%) (Auto) 51 42-75 % Lymphocytes (%) (Auto) 37 12-44 % Monocytes (%) (Auto) 9 0-12 % Eosinophils (%) (Auto) 2 0-10 % Basophils (%) (Auto) 1 0-10 % Neutrophils # (Auto) 6.1 1.8-7.8 10^3/uL Lymphocytes # (Auto) 4.5 H 1.0-4.0 10^3/uL Monocytes # (Auto) 1.0 0.0-1.0 10^3/uL Eosinophils # (Auto) 0.3 0.0-0.3 10^3/uL Basophils # (Auto) 0.1 0.0-0.1 10^3/uL Immature Granulocyte # (Auto) 0.1 0.0-0.1 10^3/uL Prothrombin Time 12.5 12.2-14.7 SEC INR Comment 0.9 0.8-1.4 Activated Partial Thromboplast Time 30 24-35 SEC Sodium Level 137 135-145 MMOL/L Potassium Level 3.8 3.6-5.0 MMOL/L Chloride Level 102 98-107 MMOL/L Carbon Dioxide Level 26 21-32 MMOL/L Anion Gap 9 5-14 MMOL/L Blood Urea Nitrogen 17 7-18 MG/DL Creatinine 0.78 0.60-1.30 MG/DL Estimat Glomerular Filtration Rate 97 BUN/Creatinine Ratio 22 Glucose Level 89 70-105 MG/DL Calcium Level 9.3 8.5-10.1 MG/DL Corrected Calcium 9.1 8.5-10.1 MG/DL Magnesium Level 1.8 1.6-2.4 MG/DL Total Bilirubin 0.3 0.1-1.0 MG/DL Aspartate Amino Transf (AST/SGOT) 23 5-34 U/L Alanine Aminotransferase (ALT/SGPT) 37 0-55 U/L Alkaline Phosphatase 72 40-136 U/L Total Protein 7.6 6.4-8.2 GM/DL Albumin 4.3 3.2-4.5 GM/DL Serum Test, Qualitative NEGATIVE NEGATIVE Serum Alcohol < 10 <10 MG/DL Influenza Type A (RT-PCR) Not Detected Not Detecte Influenza Type B (RT-PCR) Not Detected Not Detecte SARS-CoV-2 RNA (RT-PCR) Not Detected Not Detecte Urine Opiates Screen NEGATIVE NEGATIVE Urine Oxycodone Screen NEGATIVE NEGATIVE Urine Methadone Screen NEGATIVE NEGATIVE Urine Propoxyphene Screen NEGATIVE NEGATIVE Urine Barbiturates Screen NEGATIVE NEGATIVE Ur Tricyclic Antidepressants Screen NEGATIVE NEGATIVE Urine Phencyclidine Screen NEGATIVE NEGATIVE Urine Amphetamines Screen NEGATIVE NEGATIVE Urine Methamphetamines Screen NEGATIVE NEGATIVE Urine Benzodiazepines Screen POSITIVE H NEGATIVE Urine Cocaine Screen NEGATIVE NEGATIVE Urine Cannabinoids Screen NEGATIVE NEGATIVE My Orders Orders - ANYI WHATLEY DO Ed Iv/Invasive Line Start (08/01/22 18:08) Ekg Tracing (08/01/22 18:08) Monitor-Rhythm Ecg Trace Only (08/01/22 18:08) Alcohol (08/01/22 18:08) Cbc With Automated Diff (08/01/22 18:08) Comprehensive Metabolic Panel (08/01/22 18:08) Drug Screen Stat (Urine) (08/01/22 18:08) Hcg,Qualitative Serum (08/01/22 18:08) Magnesium (08/01/22 18:08) Protime With Inr (08/01/22 18:08) Partial Thromboplastin Time (08/01/22 18:08) Chest 1 View, Ap/Pa Only (08/01/22 18:08) Ondansetron Injection (Zofran Injectio (08/01/22 18:15) Catheter(Urinary) Insert & Ass 03,15 (08/01/22 18:14) Lidocaine 2% (Urojet) (Xylocaine Urojet) (08/01/22 18:15) Ct Head/Face/Cervical Wo (08/01/22 18:15) Covid 19 Inhouse Test (08/01/22 18:15) Influenza A And B By Pcr (08/01/22 18:15) Isolation Central Supply Req (08/01/22 18:15) Ct Angio Head/Neck (08/01/22 19:08) Methylprednisolone Sod Succ (Solu-Medrol (08/01/22 19:15) Iohexol Injection (Omnipaque 350 Mg/Ml 1 (08/01/22 19:30) Received Contrast (Hold Metformin- Contr (08/01/22 19:30) Ns (Ivpb) (Sodium Chloride 0.9% Ivpb Bag (08/01/22 19:30) Diphenhydramine Injection (Benadryl Inje (08/01/22 21:30) Promethazine Injection (Phenergan Injec (08/01/22 21:30) Tramadol Tablet (Ultram Tablet) (08/01/22 21:30) Medications Given in ED Current Medications Medications Dose Ordered Sig/Kenna Route Start Time Stop Time Status Last Admin Dose Admin Diphenhydramine HCl 50 mg ONCE ONCE IVP 08/01/22 21:30 08/01/22 21:31 DC 08/01/22 21:38 50 MG Iohexol 75 ml ONCE ONCE IV 08/01/22 19:30 08/01/22 19:31 DC 08/01/22 20:54 75 ML Methylprednisolone Sodium Succinate 125 mg ONCE ONCE IVP 08/01/22 19:15 08/01/22 19:16 DC 08/01/22 19:27 125 MG Ondansetron HCl 4 mg ONCE ONCE IVP 08/01/22 18:15 08/01/22 18:16 DC 08/01/22 18:38 4 MG Promethazine HCl 25 mg ONCE ONCE IVP 08/01/22 21:30 08/01/22 21:31 DC 08/01/22 21:38 25 MG Sodium Chloride 100 ml ONCE ONCE IV 08/01/22 19:30 08/01/22 19:31 DC 08/01/22 20:55 80 ML Tramadol HCl 50 mg ONCE ONCE PO 08/01/22 21:30 08/01/22 21:31 DC 08/01/22 21:38 50 MG Vital Signs/I&O 08/01/22 18:11 Temp 37.0 Pulse 97 Resp 20 B/P (MAP) 138/91 (107) Pulse Ox 95 O2 Delivery Room Air Blood Pressure Mean: 107 Progress Progress Note : Progress Note COVID AND FLU TESTING DONE GIVEN: -ZOFRAN -SOLU-MEDROL -PHENERGAN -BENADRYL -ULTRAM DIFFERENTIAL DX INCLUDES: BENIGN HEADACHE; MIGRAINE; CVA; INTRACRANIAL HEMORRHAGE; HTN; MENINGITIS; DRUG RELATED OR DRUG WITHDRAWL; LABS ARE REASSURING, NO SIGNS OF MENINGITIS OR ANY LIFE-THREATENING ILLNESS ON EXAM OR LAB. NO ABNORMAL CT FINDINGS AND NO SIGNS OF CVA ON EXAM. COVID AND FLU TESTS NEGATIVE. VITALS STABLE. REVIEWED PRIOR RECORDS--ALL ER VISITS. VARIOUS COMPLAINTS, BUT MANY FOR CHRONIC ABDOMINAL PAIN COMPLAINTS. THIS IS 3RD VISIT IN JULY--PRIOR 2 VISITS THIS MONTH WERE FOR ABDOMINAL PAIN FROM CROHN'S AND GENERALIZED PAIN FROM R.A. PT PUSHED CALL LIGHT A MULTITUDE OF TIMES, EVERY FEW MINUTES, WANTING PAIN MEDICATIONS REPEATEDLY ADVISED THROUGHOUT ER STAY THAT I WOULD TREAT HER PAIN AND NAUSEA, BUT I WOULD NOT BE GIVING HER ANY NARCOTICS. DISCUSSED TEST RESULTS, ANTICIPATED COURSE, SYMPTOMATIC TREATMENT, NEED FOR FOLLOW UP AND RETURN PRECAUTIONS. Diagnostic Imaging Comments CXR--PER RADIOLOGIST REPORT AT 1858 FINDINGS: The cardiomediastinal silhouette is unremarkable. The pulmonary vasculature is within normal limits. The lungs and pleural spaces are clear. IMPRESSION: No evidence of an acute cardiopulmonary process. CT HEAD/MAXILLOFACIALS/CERVICAL SPINE--PER RADIOLOGIST REPORT AT 1858 BRAIN: FINDINGS: There is no evidence for acute hemorrhage or infarct. There is no mass, mass effect, midline shift or hydrocephalus. The paranasal sinuses and mastoid air cells demonstrate no acute abnormality. IMPRESSION: No acute intracranial process. CT CERVICAL SPINE: There is normal height and alignment of the vertebral bodies. No fractures or subluxations. Degenerative findings predominantly at the C5-C6 and C6-C7. Prevertebral soft tissues appear unremarkable. Lung apices unremarkable. IMPRESSION: No acute process in the cervical spine. CT MAXILLOFACIAL: No displaced fractures identified. Temporomandibular mandibular joints appear intact. There is soft tissue swelling about the of orbits. The globes appear intact. Post septal spaces unremarkable. IMPRESSION: 1. No acute fractures identified. 2. Soft tissue swelling anterior to the orbits with the globes intact. CT ANGIOGRAM HEAD / NECK--PER RADIOLOGIST REPORT AT 212 FINDINGS: There is normal arch origin of great vessels. Both common carotid arteries are widely patent. Carotid bifurcations, cervical, high cervical, petrous, cavernous and supraclinoid segment both ICA are normal. A1 and A2 segments of both MONICA are patent. The left A1 segment is dominant, both A2 segments fill predominantly from the left side. There is a normal variation. M1, M2 and M3 trifurcation vessels also show normal contrast opacification. The vertebral arteries are codominant and are patent to the skull base. The PICA, basilar artery, AICA and SCA and algebraist show contrast opacification. Lung apices are clear. Superior mediastinum is unremarkable. Parapharyngeal and paraspinous soft tissues are also unremarkable. There is mild cervical spondylosis IMPRESSION: Apart from some minimal normal variants, unremarkable CTA head and neck. Reviewed: Reviewed by Me Departure Impression Primary Impression: Headache Disposition: HOME, SELF-CARE Condition: Stable Departure-Patient Inst. Decision time for Depature: 21:29 Referrals: [facility] Patient Instructions: Headache, Adult (DC) Add. Discharge Instructions: HOME, REST LOTS OF CLEAR LIQUIDS--WATER, BROTH, JELLO, GATORADE FOLLOW UP WITH [facility] IN 1-2 DAYS IF NO BETTER, RETURN TO ER IF WORSE All discharge instructions reviewed with patient and/or family. Voiced understanding. ANYI WHATLEY DO Aug 01, 2022 18:22
[2022-08-01 18:25] LABS: BASOPHILS # (AUTO) 0.1 10^3/uL (0.0-0.1); BASOPHILS % (AUTO) 1 % (0-10); EOSINOPHILS # (AUTO) 0.3 10^3/uL (0.0-0.3); EOSINOPHILS % (AUTO) 2 % (0-10); HEMATOCRIT 40 % (35-52); HEMOGLOBIN 13.9 g/dL (11.5-16.0); LYMPHOCYTES # (AUTO) 4.5 10^3/uL (1.0-4.0); LYMPHOCYTES % (AUTO) 37 % (12-44); MEAN CORPUSCULAR HEMOGLOBIN 29 pg (25-34); MEAN CORPUSCULAR HGB CONC 35 g/dL (32-36); MEAN CORPUSCULAR VOLUME 85 fL (80-99); MEAN PLATELET VOLUME 8.6 fL (9.0-12.2); MONOCYTES % (AUTO) 9 % (0-12); NEUTROPHILS # (AUTO) 6.1 10^3/uL (1.8-7.8); NEUTROPHILS % (AUTO) 51 % (42-75); PLATELET COUNT 285 10^3/uL (130-400)
[2022-08-01 18:32] LABS: ALBUMIN 4.3 GM/DL (3.2-4.5); CHLORIDE 102 MMOL/L (98-107); POTASSIUM 3.8 MMOL/L (3.6-5.0); SODIUM 137 MMOL/L (135-145)
[2022-08-01 18:34] LABS: CALCIUM 9.3 MG/DL (8.5-10.1)
[2022-08-01 18:35] LABS: GLUCOSE 89 MG/DL (70-105); TOTAL PROTEIN 7.6 GM/DL (6.4-8.2)
[2022-08-01 18:36] LABS: CARBON DIOXIDE 26 MMOL/L (21-32); INR 0.9 (0.8-1.4); PROTHROMBIN TIME PATIENT 12.5 SEC (12.2-14.7)
[2022-08-01 18:37] LABS: BILIRUBIN,TOTAL 0.3 MG/DL (0.1-1.0)
[2022-08-01 18:38] LABS: ALKALINE PHOSPHATASE 72 U/L (40-136)
[2022-08-01 18:39] LABS: CREATININE SERUM 0.78 MG/DL (0.60-1.30); GFR ESTIMATED 97
[2022-08-01 18:40] LABS: BUN/CREATININE RATIO 22
[2022-08-01 18:41] LABS: ALANINE AMINOTRANSFERASE 37 U/L (0-55)
[2022-08-01 18:42] LABS: MAGNESIUM 1.8 MG/DL (1.6-2.4)
--- NOTE | 2022-08-01 18:44 | Diagnostic Imaging Report ---
INDICATION: Headache. Chest pain EXAMINATION:: Chest 08/01/2022 COMPARISON: 09/07/2013 Single view chest FINDINGS: The cardiomediastinal silhouette is unremarkable. The pulmonary vasculature is within normal limits. The lungs and pleural spaces are clear. IMPRESSION: No evidence of an acute cardiopulmonary process. Dictated by: Dictated on workstation # [id number]
--- NOTE | 2022-08-01 18:55 | Diagnostic Imaging Report ---
PROCEDURE: CT head, face, and cervical spine without contrast. TECHNIQUE: Multiple contiguous axial images were obtained through the head, neck, and facial bones without the use of intravenous contrast. Sagittal and coronal reformations through the cervical spine and facial bones were also performed. Auto Exposure Controls were utilized during the CT exam to meet ALARA standards for radiation dose reduction. INDICATION: Trauma, pain. EXAMINATION: CT brain, CT cervical spine, CT scan of maxillofacial 08/01/2022. BRAIN: FINDINGS: There is no evidence for acute hemorrhage or infarct. There is no mass, mass effect, midline shift or hydrocephalus. The paranasal sinuses and mastoid air cells demonstrate no acute abnormality. IMPRESSION: No acute intracranial process. CT CERVICAL SPINE: There is normal height and alignment of the vertebral bodies. No fractures or subluxations. Degenerative findings predominantly at the C5-C6 and C6-C7. Prevertebral soft tissues appear unremarkable. Lung apices unremarkable. IMPRESSION: No acute process in the cervical spine. CT MAXILLOFACIAL: No displaced fractures identified. Temporomandibular mandibular joints appear intact. There is soft tissue swelling about the of orbits. The globes appear intact. Post septal spaces unremarkable. IMPRESSION: 1. No acute fractures identified. 2. Soft tissue swelling anterior to the orbits with the globes intact. Dictated by: Dictated on workstation # [id number]
[2022-08-01] MEDS ORDERED: methylPREDNISolone 125 MG (Solu-MEDROL) VIAL IVP ONE (19:15)
[2022-08-01] MEDS ORDERED: IOHEXOL 350 MG/ML 100 ML (OMNIPAQUE 350) VIAL IV ONE (19:30)
[2022-08-01] MEDS ORDERED: NS 100 ML (IVPB) BAG IV ONE (19:30)
[2022-08-01] MEDS ORDERED: HOLD METFORMIN - RECEIVED CONTRAST 20 ML VIAL IV SCH (19:30)
[2022-08-01 19:55] LABS: AMPHETAMINE SCREEN, URINE NEGATIVE (NEGATIVE); BARBITURATE SCREEN URINE NEGATIVE (NEGATIVE); BENZODIAZEPINES SCREEN URINE POSITIVE (NEGATIVE); CANNABINOID SCREEN, URINE NEGATIVE (NEGATIVE); COCAINE SCREEN URINE NEGATIVE (NEGATIVE); OPIATE SCREEN URINE NEGATIVE (NEGATIVE)
[2022-08-01 19:56] LABS: METHADONE STAT NEGATIVE (NEGATIVE); OXYCODONE STAT NEGATIVE (NEGATIVE); PROPOXYPHENE STAT NEGATIVE (NEGATIVE); TRICYCLIC ANTIDEPRESSANTS SCRE NEGATIVE (NEGATIVE)
--- NOTE | 2022-08-01 21:12 | Diagnostic Imaging Report ---
PROCEDURE: CT angiography of the head and CT angiography of the neck with and without contrast. TECHNIQUE: Contiguous noncontrast images were obtained from the skull base through the vertex. After intravenous contrast administration, helical CT angiography of the neck was performed. Source data was reformatted into 3D MIP projections. Delayed post contrast acquisition was also obtained. Auto Exposure Controls were utilized during the CT exam to meet ALARA standards for radiation dose reduction. INDICATION: 42-year-old female presents with headaches in the left occipital region of the head, acute visual changes and burning sensation radiating down the neck. COMPARISONS: CT head and C-spine 07/29/2022. FINDINGS: There is normal arch origin of great vessels. Both common carotid arteries are widely patent. Carotid bifurcations, cervical, high cervical, petrous, cavernous and supraclinoid segment both ICA are normal. A1 and A2 segments of both MONICA are patent. The left A1 segment is dominant, both A2 segments fill predominantly from the left side. There is a normal variation. M1, M2 and M3 trifurcation vessels also show normal contrast opacification. The vertebral arteries are codominant and are patent to the skull base. The PICA, basilar artery, AICA and SCA and loader engineer show contrast opacification. Lung apices are clear. Superior mediastinum is unremarkable. Parapharyngeal and paraspinous soft tissues are also unremarkable. There is mild cervical spondylosis IMPRESSION: Apart from some minimal normal variants, unremarkable CTA head and neck. Dictated by: Dictated on workstation # [id number]
[2022-08-01] MEDS ORDERED: diphenhydrAMINE 50 MG/ML INJ (BENADRYL) IVP ONE (21:30)
[2022-08-01] MEDS ORDERED: PROMETHAZINE INJ 25 MG/ML (PHENERGAN) AMP IVP ONE (21:30)
[2022-08-01 22:33] VITALS: BP 149/95
== END 2022-08-01 22:34 | disposition home or self-care (01) ==
LOC: EDUNIT# 18:05 → ER 18:06
DX: R51.9 Headache, unspecified (principal); M06.9 Rheumatoid arthritis, unspecified; F17.210 Nicotine dependence, cigarettes, uncomplicated; Z88.5 Allergy status to narcotic agent; Z20.822 Contact with and (suspected) exposure to COVID-19; Z79.899 Other long term (current) drug therapy; Z28.310 Unvaccinated for COVID-19
CPT/HCPCS: 70450; 70486; 70496; 70498; 71045; 72125; 80053; 80306; 83735; 84703; 85025; 85610; 85730; 87636; 93005; 93041; 99284; G0480; 36415; 80320